=== PATIENT | female | born 1940 | race Caucasian/White ===

== ENCOUNTER 2017-07-29 15:13 | Inpatient (IN) | payer MEDICARE, MEDICAID ==
[2017-07-29] MEDS: morphine 4 MG/ML VIAL IV (22:03)
[2017-07-29] MEDS: ONDANSETRON 4 MG INJ IV (22:04)
[2017-07-29 22:17] LABS: ADD MAN DIFF? NO
[2017-07-29 22:22] LABS: BASOPHIL # 0.1 10^3/ul (0.0-0.1); BASOPHILS % 1.1 % (0.0-2.0); EOSINOPHILS # 0.3 10^3/ul (0.0-0.5); EOSINOPHILS % 2.2 % (0.0-7.0); HEMATOCRIT 31.9 % (37.0-47.0); HEMOGLOBIN 10.8 g/dl (12.0-16.0); MEAN CORPUSCULAR HEMOGLOBIN 28.3 pg (29.0-33.0); MEAN CORPUSCULAR HGB CONC 33.9 g/dl (32.0-37.0); MEAN CORPUSCULAR VOLUME 83.5 fl (82.0-101.0); MEAN PLATELET VOLUME 10.5 fl (7.4-10.4); MONOCYTES % 8.7 % (0.0-11.0); NEUTROPHIL # 8.3 10^3/ul (1.6-7.5); NEUTROPHILS % 70.6 % (39.0-77.0); PLATELET COUNT 290 10^3/UL (140-415); RED BLOOD COUNT 3.82 10^6/ul (4.20-5.40); RED CELL DISTRIBUTION WIDTH 14.6 % (11.5-14.5)
[2017-07-29 22:22] LABS: WHITE BLOOD COUNT 11.7 10^3/ul (4.8-10.8)
[2017-07-29 22:40] LABS: INR 1.44; PROTIME 17.8 Sec (11.9-14.9); PT RATIO 1.4
[2017-07-29 22:41] LABS: ANION GAP 24 (8-16); BLOOD UREA NITROGEN 87 mg/dl (7-20); CALCIUM 8.8 mg/dl (8.4-10.2); CARBON DIOXIDE 18 mmol/L (21-31); CHLORIDE 95 mmol/L (97-110); CREATININE 10.77 mg/dl (0.44-1.00); GLUCOSE 171 mg/dl (70-220); PARTIAL THROMBOPLASTIN TIME 37.4 Sec (25.0-35.0); SODIUM 131 mmol/L (135-144)
[2017-07-29 23:00] LABS: POTASSIUM 6.3 mmol/L (3.5-5.1); TROPONIN-I < 0.012 ng/ml (0.00-0.12)
[2017-07-29] MEDS: NA BICARBONATE 8.4% 50 ML SYG IV (23:15)
[2017-07-29] MEDS: NA POLYST SULFON 15 GM/60 ML BTL PO (23:15)
[2017-07-29] MEDS ORDERED: ACETAMINOPHEN 325 MG TAB PO (23:30)
[2017-07-30] MEDS ORDERED: MAGNESIUM HYDROXIDE 30ML CUP PO
[2017-07-30] MEDS ORDERED: NACL 0.9% 3 ML SYG IV
[2017-07-30] MEDS ORDERED: ONDANSETRON 4 MG INJ IV
[2017-07-30] MEDS ORDERED: DOCUSATE SODIUM 100 MG CAP PO
[2017-07-30] MEDS ORDERED: HYDROCODONE/APAP (5/325) TAB PO
[2017-07-30] MEDS ORDERED: morphine 2 MG INJ IV
[2017-07-30] MEDS ORDERED: ZOLPIDEM 5 MG TAB PO
[2017-07-30] MEDS ORDERED: ACETAMINOPHEN 325 MG TAB PO
[2017-07-30] MEDS ORDERED: GLUCOSE GEL 15 GRAM TUBE PO ×2 (00:30)
[2017-07-30] MEDS ORDERED: GLUCAGON 1 MG INJ IM (00:30)
[2017-07-30] MEDS ORDERED: DEXTROSE 50% 50 ML SYRINGE IV ×2 (00:30)
[2017-07-30] MEDS: ALBUTEROL 0.5% (NEB) 2.5 MG/0.5 ML AMP INH (01:14)
[2017-07-30 04:56] LABS: ADD MAN DIFF? NO
[2017-07-30 05:00] LABS: WHITE BLOOD COUNT 8.5 10^3/ul (4.8-10.8)
[2017-07-30 05:00] LABS: BASOPHIL # 0.1 10^3/ul (0.0-0.1); BASOPHILS % 1.2 % (0.0-2.0); EOSINOPHILS # 0.2 10^3/ul (0.0-0.5); EOSINOPHILS % 2.5 % (0.0-7.0); HEMOGLOBIN 10.2 g/dl (12.0-16.0); LYMPHOCYTES # 1.6 10^3/ul (0.8-2.9); LYMPHOCYTES % 19.2 % (15.0-51.0); MEAN CORPUSCULAR HEMOGLOBIN 28.3 pg (29.0-33.0); MEAN CORPUSCULAR VOLUME 83.1 fl (82.0-101.0); MEAN PLATELET VOLUME 10.4 fl (7.4-10.4); MONOCYTE # 0.8 10^3/ul (0.3-0.9); MONOCYTES % 9.8 % (0.0-11.0); NEUTROPHIL # 5.7 10^3/ul (1.6-7.5); NEUTROPHILS % 66.9 % (39.0-77.0); PLATELET COUNT 231 10^3/UL (140-415); RED BLOOD COUNT 3.61 10^6/ul (4.20-5.40); RED CELL DISTRIBUTION WIDTH 14.4 % (11.5-14.5)
[2017-07-30 05:42] LABS: ALANINE AMINOTRANSFERASE 17 IU/L (13-69); ALBUMIN 3.7 g/dl (3.3-4.9); ALBUMIN/GLOBULIN RATIO 1.12; ALKALINE PHOSPHATASE 52 IU/L (42-121); ANION GAP 26 (8-16); ASPARTATE AMINO TRANSFERASE 18 IU/L (15-46); BLOOD UREA NITROGEN 86 mg/dl (7-20); CALCIUM 8.4 mg/dl (8.4-10.2); CARBON DIOXIDE 20 mmol/L (21-31); CHLORIDE 95 mmol/L (97-110); CREATININE 10.93 mg/dl (0.44-1.00); GLUCOSE 127 mg/dl (70-220); SODIUM 135 mmol/L (135-144)
[2017-07-30] MEDS: PANTOPRAZOLE (EC) 40 MG TAB PO (05:46)
[2017-07-30 06:14] LABS: TROPONIN-I < 0.012 ng/ml (0.00-0.12)
[2017-07-30 06:16] LABS: POTASSIUM 6.2 mmol/L (3.5-5.1)
[2017-07-30] MEDS: ASPIRIN (EC) 81 MG TAB PO (09:22)
[2017-07-30] MEDS: FUROSEMIDE 40 MG TAB PO (09:22)
[2017-07-30] MEDS: AMLODIPINE 5 MG TAB PO (09:23)
[2017-07-30] MEDS: ESCITALOPRAM 10 MG TAB PO (09:23)
[2017-07-30] MEDS: CALCIUM ACETATE 667 MG CAP PO ×3 (09:23→22:03)
[2017-07-30] MEDS: SERTRALINE 50 MG TAB PO (09:23)
[2017-07-30] MEDS: LINAGLIPTIN 5 MG TABLET PO (09:23)
[2017-07-30] MEDS: HEPARIN 5,000 UNIT/0.5 ML VIAL SC ×2 (09:28→22:09)
[2017-07-30 09:51] LABS: HEMOGLOBIN A1C 5.9 % (0-5.9)
[2017-07-30] MEDS: NA POLYST SULFON 15 GM/60 ML BTL PO (13:21)
[2017-07-30] MEDS ORDERED: ALBUMIN HUMAN 25% 50 ML IV (13:30)
[2017-07-30] MEDS ORDERED: SODIUM CHLORIDE 0.9% 1L BAG IV (13:30)
[2017-07-30] MEDS: LOPERAMIDE 2 MG CAP PO (14:48)
[2017-07-30] MEDS: ONDANSETRON 4 MG INJ IV (20:19)
[2017-07-30] MEDS: INSULIN GLARGINE [LANtus] 3 ML PEN SC (22:24)
[2017-07-31] MEDS: PANTOPRAZOLE (EC) 40 MG TAB PO (06:29)
[2017-07-31] MEDS: GLUCOSE GEL 15 GRAM TUBE BUCCAL (08:15)
[2017-07-31] MEDS: DEXTROSE 50% 50 ML SYRINGE IV (08:27)
[2017-07-31] MEDS: AMLODIPINE 5 MG TAB PO (09:13)
[2017-07-31] MEDS: LINAGLIPTIN 5 MG TABLET PO (09:13)
[2017-07-31] MEDS: CALCIUM ACETATE 667 MG CAP PO ×2 (09:13→12:50)
[2017-07-31] MEDS: SERTRALINE 50 MG TAB PO (09:13)
[2017-07-31] MEDS: ASPIRIN (EC) 81 MG TAB PO (09:13)
[2017-07-31] MEDS: FUROSEMIDE 40 MG TAB PO (09:14)
[2017-07-31] MEDS: ESCITALOPRAM 10 MG TAB PO (09:14)
[2017-07-31] MEDS: HEPARIN 5,000 UNIT/0.5 ML VIAL SC (09:14)
[2017-07-31 09:20] LABS: ADD MAN DIFF? NO
[2017-07-31 09:22] LABS: BASOPHIL # 0.1 10^3/ul (0.0-0.1); BASOPHILS % 1.2 % (0.0-2.0); EOSINOPHILS # 0.2 10^3/ul (0.0-0.5); EOSINOPHILS % 2.7 % (0.0-7.0); HEMATOCRIT 33.8 % (37.0-47.0); HEMOGLOBIN 11.4 g/dl (12.0-16.0); LYMPHOCYTES # 1.6 10^3/ul (0.8-2.9); LYMPHOCYTES % 18.8 % (15.0-51.0); MEAN CORPUSCULAR HEMOGLOBIN 28.5 pg (29.0-33.0); MEAN CORPUSCULAR HGB CONC 33.7 g/dl (32.0-37.0); MEAN CORPUSCULAR VOLUME 84.5 fl (82.0-101.0); MEAN PLATELET VOLUME 10.4 fl (7.4-10.4); MONOCYTES % 11.9 % (0.0-11.0); NEUTROPHIL # 5.5 10^3/ul (1.6-7.5); PLATELET COUNT 316 10^3/UL (140-415); RED CELL DISTRIBUTION WIDTH 14.6 % (11.5-14.5)
[2017-07-31 09:22] LABS: WHITE BLOOD COUNT 8.5 10^3/ul (4.8-10.8)
[2017-07-31 09:32] LABS: HEMOGLOBIN A1C 5.9 % (0-5.9)
[2017-07-31 09:46] LABS: MAGNESIUM 2.1 mg/dl (1.7-2.5)
[2017-07-31 09:46] LABS: PHOSPHORUS 5.1 mg/dl (2.5-4.9)
[2017-07-31 09:49] LABS: GLUCOSE 42 mg/dl (70-220)
[2017-07-31 09:51] LABS: ANION GAP 18 (8-16); BLOOD UREA NITROGEN 44 mg/dl (7-20); CALCIUM 8.7 mg/dl (8.4-10.2); CARBON DIOXIDE 30 mmol/L (21-31); CHLORIDE 95 mmol/L (97-110); CREATININE 7.05 mg/dl (0.44-1.00); SODIUM 139 mmol/L (135-144)
[2017-07-31 09:55] LABS: GLUCOSE 45 mg/dl (70-220)
[2017-07-31 10:52] LABS: ANION GAP 18 (8-16); BLOOD UREA NITROGEN 45 mg/dl (7-20); CALCIUM 8.3 mg/dl (8.4-10.2); CARBON DIOXIDE 30 mmol/L (21-31); CHLORIDE 94 mmol/L (97-110); CREATININE 6.87 mg/dl (0.44-1.00); GLUCOSE 141 mg/dl (70-220); POTASSIUM 4.5 mmol/L (3.5-5.1); SODIUM 137 mmol/L (135-144)
[2017-07-31 15:48] LABS: HEPATITIS B SURFACE ANTIGEN NEGATIVE (NEGATIVE)
== END 2017-07-31 20:15 | disposition home or self-care (01) | DRG 683 ==
LOC: MS4 23:21 → E/R 15:13
PROC: 5A1D70Z Performance of Urinary Filtration, Intermittent, Less than 6 Hours Per Day (ICD-10-PCS; principal; 2017-07-30)
DX: N17.9 Acute kidney failure, unspecified (principal); I13.2 Hypertensive heart and chronic kidney disease with heart failure and with stage 5 chronic kidney disease, or end stage renal disease; I42.9 Cardiomyopathy, unspecified; E11.22 Type 2 diabetes mellitus with diabetic chronic kidney disease; N18.6 End stage renal disease; E87.5 Hyperkalemia; I50.9 Heart failure, unspecified; D63.1 Anemia in chronic kidney disease; R00.1 Bradycardia, unspecified; Z91.15 Patient's noncompliance with renal dialysis; Z91.11 Patient's noncompliance with dietary regimen; E78.5 Hyperlipidemia, unspecified; E66.3 Overweight; F32.9 Major depressive disorder, single episode, unspecified; F41.9 Anxiety disorder, unspecified; I25.10 Atherosclerotic heart disease of native coronary artery without angina pectoris; R19.7 Diarrhea, unspecified; Z68.28 Body mass index [BMI] 28.0-28.9, adult; Z99.2 Dependence on renal dialysis; Z95.1 Presence of aortocoronary bypass graft; Z95.810 Presence of automatic (implantable) cardiac defibrillator; Z87.891 Personal history of nicotine dependence; Z79.82 Long term (current) use of aspirin; Z79.4 Long term (current) use of insulin
CPT/HCPCS: 71045; 80048; 80053; 82947; 82962; 83036; 83735; 84100; 84484; 85025; 85610; 85730; 87340; 90935; 93005; 94664; 96372; 96374; 96375; 96376; 99291-25

== ENCOUNTER 2018-08-07 07:53 | Inpatient (IN) | payer MEDICARE, MEDICAID ==
[2018-08-07 08:02] LABS: ADD MAN DIFF? NO
[2018-08-07 08:06] LABS: WHITE BLOOD COUNT 10.5 10^3/ul (4.8-10.8)
[2018-08-07 08:06] LABS: BASOPHIL # 0.1 10^3/ul (0.0-0.1); BASOPHILS % 1.1 % (0.0-2.0); EOSINOPHILS # 0.1 10^3/ul (0.0-0.5); HEMATOCRIT 40.8 % (37.0-47.0); HEMOGLOBIN 13.3 g/dl (12.0-16.0); LYMPHOCYTES # 1.4 10^3/ul (0.8-2.9); LYMPHOCYTES % 13.3 % (15.0-51.0); MEAN CORPUSCULAR HEMOGLOBIN 28.3 pg (29.0-33.0); MEAN CORPUSCULAR HGB CONC 32.6 g/dl (32.0-37.0); MEAN CORPUSCULAR VOLUME 86.8 fl (82.0-101.0); MEAN PLATELET VOLUME 10.5 fl (7.4-10.4); MONOCYTE # 1.1 10^3/ul (0.3-0.9); MONOCYTES % 10.3 % (0.0-11.0); NEUTROPHIL # 7.7 10^3/ul (1.6-7.5); NEUTROPHILS % 73.8 % (39.0-77.0); NUCLEATED RED BLOOD CELLS% 0.2 /100WBC (0.0-0.0); PLATELET COUNT 289 10^3/UL (140-415); RED CELL DISTRIBUTION WIDTH 14.5 % (11.5-14.5)
[2018-08-07] MEDS: NITROGLYCERIN (SL) 0.4 MG TAB SL (08:23)
[2018-08-07] MEDS: ONDANSETRON 4 MG INJ IV (08:23)
[2018-08-07] MEDS: morphine 4 MG/ML VIAL IV (08:23)
[2018-08-07 08:24] LABS: ANION GAP 26 (5-13); BLOOD UREA NITROGEN 86 mg/dl (7-20); CALCIUM 7.9 mg/dl (8.4-10.2); CARBON DIOXIDE 13 mmol/L (21-31); CHLORIDE 96 mmol/L (97-110); CREATININE 13.32 mg/dl (0.44-1.00); GLUCOSE 98 mg/dl (70-220); SODIUM 135 mmol/L (135-144)
[2018-08-07] MEDS: NITROGLYCERIN 2% 1 GM OINT PKT TD (08:24)
[2018-08-07 08:35] LABS: TROPONIN-I 0.058 ng/ml (0.000-0.120)
[2018-08-07 08:39] LABS: POTASSIUM 8.3 mmol/L (3.5-5.1)
[2018-08-07] MEDS: ALBUTEROL 0.5% (NEB) 2.5 MG/0.5 ML AMP INH (09:07)
[2018-08-07] MEDS: DEXTROSE 50% 50 ML SYRINGE IV ×2 (09:09→09:53)
[2018-08-07] MEDS: CA CHLORIDE 10% 10 ML SYRINGE IV (09:10)
[2018-08-07] MEDS: NA BICARBONATE 8.4% 50 ML SYG IV (09:10)
[2018-08-07] MEDS: SODIUM POLYSTYRENE 15 GM KIT (POWDER + SORBITOL) PO ×3 (09:11→23:35)
[2018-08-07] MEDS: NA POLYST SULFON 15 GM/60 ML BTL PO (09:11)
[2018-08-07] MEDS: INSULIN REGULAR, HUMAN 100 UNIT/1 ML 3ML VIAL IVP (09:11)
[2018-08-07] MEDS ORDERED: ACETAMINOPHEN 325 MG TAB PO (09:30)
[2018-08-07] MEDS ORDERED: ONDANSETRON 4 MG INJ IV ×2 (09:30→13:00)
[2018-08-07] MEDS: DIPHENHYDRAMINE 50 MG INJ IV ×2 (09:47→15:20)
[2018-08-07] MEDS ORDERED: SOD CHLORIDE 0.9% 1,000 ML IV (10:30)
[2018-08-07] MEDS ORDERED: NACL 0.9% 3 ML SYG IV (13:00)
[2018-08-07] MEDS ORDERED: LORAZEPAM 0.5 MG TAB PO (13:00)
[2018-08-07] MEDS ORDERED: ZOLPIDEM 5 MG TAB PO (13:00)
[2018-08-07] MEDS ORDERED: morphine 2 MG INJ IV (13:30)
[2018-08-07] MEDS ORDERED: GLUCAGON 1 MG INJ IM (13:30)
[2018-08-07] MEDS ORDERED: GLUCOSE GEL 15 GRAM TUBE BUCCAL (13:30)
[2018-08-07] MEDS ORDERED: DEXTROSE 50% 50 ML SYRINGE IV ×2 (13:30)
[2018-08-07] MEDS ORDERED: GLUCOSE GEL 15 GRAM TUBE PO ×2 (13:30)
[2018-08-07] MEDS ORDERED: ESCITALOPRAM 10 MG TAB PO (14:00)
[2018-08-07] MEDS ORDERED: HEPARIN 5,000 UNIT/1 ML VIAL SC (14:00)
[2018-08-07] MEDS ORDERED: LINAGLIPTIN 5 MG TABLET PO (14:00)
[2018-08-07] MEDS ORDERED: morphine (ER) 15 MG TAB PO (14:00)
[2018-08-07] MEDS ORDERED: CALCIUM ACETATE 667 MG CAP PO (14:00)
[2018-08-07] MEDS ORDERED: ASPIRIN (EC) 81 MG TAB PO (14:00)
[2018-08-07] MEDS ORDERED: PANTOPRAZOLE (EC) 40 MG TAB PO (14:00)
[2018-08-07] MEDS ORDERED: SERTRALINE 50 MG TAB PO (14:00)
[2018-08-07] MEDS ORDERED: AMLODIPINE 5 MG TAB PO (14:00)
[2018-08-07 15:08] LABS: CREATINE KINASE 460 IU/L (23-200)
[2018-08-07 15:18] LABS: CK-MB 9.34 ng/ml (0.0-2.4); TROPONIN-I 0.061 ng/ml (0.000-0.120)
[2018-08-07 15:49] LABS: ALPHA FETOPROTEIN 1.45 IU/L (0.00-7.21)
[2018-08-07 16:32] LABS: HEPATITIS B SURFACE ANTIGEN NEGATIVE (NEGATIVE)
[2018-08-07] MEDS: PANTOPRAZOLE (EC) 40 MG TAB PO (17:22)
[2018-08-07] MEDS: CALCIUM ACETATE 667 MG CAP PO (17:22)
[2018-08-07] MEDS: LINAGLIPTIN 5 MG TABLET PO (17:23)
[2018-08-07] MEDS: ESCITALOPRAM 10 MG TAB PO (17:23)
[2018-08-07] MEDS: SERTRALINE 50 MG TAB PO (17:23)
[2018-08-07] MEDS: AMLODIPINE 5 MG TAB PO (17:33)
[2018-08-07] MEDS: HEPARIN 5,000 UNIT/1 ML VIAL SC (17:34)
[2018-08-07] MEDS: morphine (ER) 15 MG TAB PO (17:36)
[2018-08-07] MEDS: INSULIN ASPART [NOVOLOG] 3 ML PEN SC ×2 (17:39→21:00)
[2018-08-07 19:56] LABS: CREATINE KINASE 371 IU/L (23-200)
[2018-08-07 20:09] LABS: POTASSIUM 7.2 mmol/L (3.5-5.1)
[2018-08-07 20:13] LABS: CK-MB 7.36 ng/ml (0.0-2.4); TROPONIN-I 0.083 ng/ml (0.000-0.120)
[2018-08-07 20:43] LABS: OCCULT BLOOD STOOL NEGATIVE (NEGATIVE)
[2018-08-08] MEDS: SODIUM POLYSTYRENE 15 GM KIT (POWDER + SORBITOL) PO (01:00)
[2018-08-08] MEDS: ACCU-CHEK XX (02:00)
[2018-08-08] MEDS: DIPHENHYDRAMINE 50 MG INJ IV (02:28)
[2018-08-08] MEDS: PANTOPRAZOLE (EC) 40 MG TAB PO (06:14)
[2018-08-08] MEDS ORDERED: NALOXONE (0.4 MG/ML) INJ (07:00)
[2018-08-08] MEDS: INSULIN ASPART [NOVOLOG] 3 ML PEN SC ×4 (07:58→21:00)
[2018-08-08] MEDS: CALCIUM ACETATE 667 MG CAP PO ×3 (08:37→17:26)
[2018-08-08] MEDS: ESCITALOPRAM 10 MG TAB PO (08:38)
[2018-08-08] MEDS: morphine (ER) 15 MG TAB PO (08:39)
[2018-08-08] MEDS: LINAGLIPTIN 5 MG TABLET PO (08:39)
[2018-08-08] MEDS: AMLODIPINE 5 MG TAB PO (08:39)
[2018-08-08] MEDS: SERTRALINE 50 MG TAB PO (08:39)
[2018-08-08] MEDS: HEPARIN 5,000 UNIT/1 ML VIAL SC ×2 (08:44→22:41)
[2018-08-08 08:48] LABS: ADD MAN DIFF? NO
[2018-08-08 08:54] LABS: WHITE BLOOD COUNT 9.5 10^3/ul (4.8-10.8)
[2018-08-08 08:54] LABS: BASOPHIL # 0.1 10^3/ul (0.0-0.1); BASOPHILS % 0.6 % (0.0-2.0); EOSINOPHILS # 0.1 10^3/ul (0.0-0.5); EOSINOPHILS % 1.1 % (0.0-7.0); HEMATOCRIT 38.3 % (37.0-47.0); HEMOGLOBIN 12.3 g/dl (12.0-16.0); LYMPHOCYTES # 0.9 10^3/ul (0.8-2.9); LYMPHOCYTES % 9.3 % (15.0-51.0); MEAN CORPUSCULAR HGB CONC 32.1 g/dl (32.0-37.0); MEAN CORPUSCULAR VOLUME 87.2 fl (82.0-101.0); MEAN PLATELET VOLUME 9.9 fl (7.4-10.4); MONOCYTE # 1.1 10^3/ul (0.3-0.9); NEUTROPHIL # 7.3 10^3/ul (1.6-7.5); NEUTROPHILS % 76.6 % (39.0-77.0); NUCLEATED RED BLOOD CELLS% 0.4 /100WBC (0.0-0.0); PLATELET COUNT 239 10^3/UL (140-415); RED BLOOD COUNT 4.39 10^6/ul (4.20-5.40); RED CELL DISTRIBUTION WIDTH 14.6 % (11.5-14.5)
[2018-08-08 09:19] LABS: PHOSPHORUS 4.8 mg/dl (2.5-4.9)
[2018-08-08 09:20] LABS: AMMONIA 11 umol/l (9-30)
[2018-08-08 09:20] LABS: ALANINE AMINOTRANSFERASE 17 IU/L (13-69); ALBUMIN 3.7 g/dl (3.3-4.9); ALBUMIN/GLOBULIN RATIO 1.02; ALKALINE PHOSPHATASE 67 IU/L (42-121); ANION GAP 12 (5-13); ASPARTATE AMINO TRANSFERASE 40 IU/L (15-46); BLOOD UREA NITROGEN 15 mg/dl (7-20); CALCIUM 9.1 mg/dl (8.4-10.2); CARBON DIOXIDE 30 mmol/L (21-31); CHLORIDE 97 mmol/L (97-110); CHOL/HDL RATIO 4.5 RATIO; CHOLESTEROL 142 mg/dl (100-200); CREATININE 4.37 mg/dl (0.44-1.00); GLUCOSE 108 mg/dl (70-220); HDL CHOLESTEROL 31 mg/dl (33-92); LDL CHOLESTEROL,CALCULATED 75 mg/dl; POTASSIUM 3.5 mmol/L (3.5-5.1); SODIUM 139 mmol/L (135-144); TOTAL PROTEIN 7.3 g/dl (6.1-8.1); TRIGLYCERIDES 178 mg/dl (0-149)
[2018-08-08 09:21] LABS: HEMOGLOBIN A1C 7.4 % (0-5.9)
[2018-08-08 09:28] LABS: INR 1.38; PROTIME 17.1 Sec (11.9-14.9); PT RATIO 1.3
[2018-08-08] MEDS: OXYCODONE/ACETAMINOPHEN (5/325) TAB PO (15:34)
[2018-08-08] MEDS: ASPIRIN (EC) 81 MG TAB PO (17:26)
[2018-08-08] MEDS: NALOXONE (0.4 MG/ML) INJ IV ×3 (21:05→21:38)
[2018-08-08 22:07] LABS: ADD MAN DIFF? NO
[2018-08-08 22:08] LABS: BASOPHIL # 0.1 10^3/ul (0.0-0.1); BASOPHILS % 0.6 % (0.0-2.0); EOSINOPHILS # 0.2 10^3/ul (0.0-0.5); EOSINOPHILS % 1.5 % (0.0-7.0); HEMATOCRIT 39.5 % (37.0-47.0); HEMOGLOBIN 12.5 g/dl (12.0-16.0); LYMPHOCYTES # 1.3 10^3/ul (0.8-2.9); LYMPHOCYTES % 11.5 % (15.0-51.0); MEAN CORPUSCULAR HEMOGLOBIN 28.3 pg (29.0-33.0); MEAN CORPUSCULAR HGB CONC 31.6 g/dl (32.0-37.0); MEAN CORPUSCULAR VOLUME 89.4 fl (82.0-101.0); MEAN PLATELET VOLUME 10.1 fl (7.4-10.4); MONOCYTE # 1.2 10^3/ul (0.3-0.9); NEUTROPHIL # 8.2 10^3/ul (1.6-7.5); NEUTROPHILS % 74.9 % (39.0-77.0); NUCLEATED RED BLOOD CELLS% 0.3 /100WBC (0.0-0.0); PLATELET COUNT 218 10^3/UL (140-415); RED BLOOD COUNT 4.42 10^6/ul (4.20-5.40); RED CELL DISTRIBUTION WIDTH 14.9 % (11.5-14.5)
[2018-08-08 22:27] LABS: ANION GAP 13 (5-13); BLOOD UREA NITROGEN 19 mg/dl (7-20); CALCIUM 8.8 mg/dl (8.4-10.2); CARBON DIOXIDE 29 mmol/L (21-31); CHLORIDE 96 mmol/L (97-110); CREATININE 5.68 mg/dl (0.44-1.00); GLUCOSE 145 mg/dl (70-220); POTASSIUM 3.7 mmol/L (3.5-5.1); SODIUM 138 mmol/L (135-144)
[2018-08-08 23:06] LABS: MODE NASAL CANNULA; MetHgb Venous 0.2 %; Sample Type Blood venous; Site VENOUS LINE; Venous COHb 0.6 %; Venous Fraction OxyHgb 96.8 %; Venous Oxygen Sat 97.6 mmHG (55.0-75.0); Venous Total Hemglobin 13.4 g/dl
[2018-08-09] MEDS: ACCU-CHEK XX (02:00)
[2018-08-09] MEDS: PANTOPRAZOLE (EC) 40 MG TAB PO (05:39)
[2018-08-09 05:54] LABS: ADD MAN DIFF? NO
[2018-08-09 06:04] LABS: WHITE BLOOD COUNT 9.1 10^3/ul (4.8-10.8)
[2018-08-09 06:04] LABS: BASOPHIL # 0.1 10^3/ul (0.0-0.1); BASOPHILS % 0.5 % (0.0-2.0); EOSINOPHILS % 0.2 % (0.0-7.0); HEMATOCRIT 38.6 % (37.0-47.0); HEMOGLOBIN 12.1 g/dl (12.0-16.0); LYMPHOCYTES # 1.4 10^3/ul (0.8-2.9); LYMPHOCYTES % 15.1 % (15.0-51.0); MEAN CORPUSCULAR HEMOGLOBIN 28.2 pg (29.0-33.0); MEAN CORPUSCULAR HGB CONC 31.3 g/dl (32.0-37.0); MEAN PLATELET VOLUME 10.1 fl (7.4-10.4); MONOCYTE # 0.9 10^3/ul (0.3-0.9); MONOCYTES % 9.5 % (0.0-11.0); NEUTROPHIL # 6.8 10^3/ul (1.6-7.5); NEUTROPHILS % 74.3 % (39.0-77.0); NUCLEATED RED BLOOD CELLS% 0.2 /100WBC (0.0-0.0); PLATELET COUNT 207 10^3/UL (140-415); RED BLOOD COUNT 4.29 10^6/ul (4.20-5.40); RED CELL DISTRIBUTION WIDTH 14.8 % (11.5-14.5)
[2018-08-09 06:32] LABS: ANION GAP 18 (5-13); BLOOD UREA NITROGEN 23 mg/dl (7-20); CALCIUM 8.7 mg/dl (8.4-10.2); CARBON DIOXIDE 27 mmol/L (21-31); CHLORIDE 98 mmol/L (97-110); CREATININE 6.23 mg/dl (0.44-1.00); GLUCOSE 136 mg/dl (70-220); POTASSIUM 3.9 mmol/L (3.5-5.1); SODIUM 143 mmol/L (135-144)
[2018-08-09 06:57] LABS: PHOSPHORUS 7.4 mg/dl (2.5-4.9)
[2018-08-09] MEDS: ASPIRIN (EC) 81 MG TAB PO (08:35)
[2018-08-09] MEDS: LINAGLIPTIN 5 MG TABLET PO (08:35)
[2018-08-09] MEDS: SERTRALINE 50 MG TAB PO (08:35)
[2018-08-09] MEDS: CALCIUM ACETATE 667 MG CAP PO ×3 (08:35→17:30)
[2018-08-09] MEDS: ESCITALOPRAM 10 MG TAB PO (08:35)
[2018-08-09] MEDS: AMLODIPINE 5 MG TAB PO (08:36)
[2018-08-09] MEDS: HEPARIN 5,000 UNIT/1 ML VIAL SC ×2 (08:45→21:30)
[2018-08-09] MEDS: INSULIN ASPART [NOVOLOG] 3 ML PEN SC ×4 (08:45→20:44)
[2018-08-09] MEDS ORDERED: ALBUMIN HUMAN 25% 100 ML IV (10:00)
[2018-08-09] MEDS: PIPER-TAZO 2.25 GM (PMX) 50 ML IVPB (14:57)
[2018-08-10] MEDS: PIPER-TAZO 2.25 GM (PMX) 50 ML IVPB ×3 (00:03→23:10)
[2018-08-10] MEDS: ACCU-CHEK XX (02:00)
[2018-08-10] MEDS: PANTOPRAZOLE (EC) 40 MG TAB PO (05:32)
[2018-08-10 06:07] LABS: ADD MAN DIFF? NO
[2018-08-10 06:15] LABS: WHITE BLOOD COUNT 7.9 10^3/ul (4.8-10.8)
[2018-08-10 06:15] LABS: BASOPHIL # 0.1 10^3/ul (0.0-0.1); BASOPHILS % 0.6 % (0.0-2.0); EOSINOPHILS # 0.3 10^3/ul (0.0-0.5); HEMATOCRIT 38.7 % (37.0-47.0); HEMOGLOBIN 12.2 g/dl (12.0-16.0); LYMPHOCYTES # 1.5 10^3/ul (0.8-2.9); LYMPHOCYTES % 18.4 % (15.0-51.0); MEAN CORPUSCULAR HEMOGLOBIN 28.6 pg (29.0-33.0); MEAN CORPUSCULAR HGB CONC 31.5 g/dl (32.0-37.0); MEAN CORPUSCULAR VOLUME 90.6 fl (82.0-101.0); MEAN PLATELET VOLUME 10.2 fl (7.4-10.4); MONOCYTE # 1.2 10^3/ul (0.3-0.9); MONOCYTES % 14.6 % (0.0-11.0); NEUTROPHIL # 4.9 10^3/ul (1.6-7.5); NEUTROPHILS % 61.8 % (39.0-77.0); NUCLEATED RED BLOOD CELLS% 0.3 /100WBC (0.0-0.0); PLATELET COUNT 202 10^3/UL (140-415); RED BLOOD COUNT 4.27 10^6/ul (4.20-5.40); RED CELL DISTRIBUTION WIDTH 14.9 % (11.5-14.5)
[2018-08-10 06:46] LABS: ANION GAP 14 (5-13); BLOOD UREA NITROGEN 15 mg/dl (7-20); CALCIUM 8.7 mg/dl (8.4-10.2); CARBON DIOXIDE 30 mmol/L (21-31); CHLORIDE 96 mmol/L (97-110); GLUCOSE 104 mg/dl (70-220); POTASSIUM 3.8 mmol/L (3.5-5.1); SODIUM 140 mmol/L (135-144)
[2018-08-10 06:53] LABS: MAGNESIUM 1.9 mg/dl (1.7-2.5)
[2018-08-10 06:53] LABS: PHOSPHORUS 4.2 mg/dl (2.5-4.9)
[2018-08-10] MEDS: INSULIN ASPART [NOVOLOG] 3 ML PEN SC ×4 (07:53→23:06)
[2018-08-10] MEDS: CALCIUM ACETATE 667 MG CAP PO ×3 (08:22→17:06)
[2018-08-10] MEDS: ESCITALOPRAM 10 MG TAB PO (08:22)
[2018-08-10] MEDS: LINAGLIPTIN 5 MG TABLET PO (08:22)
[2018-08-10] MEDS: ASPIRIN (EC) 81 MG TAB PO (08:22)
[2018-08-10] MEDS: AMLODIPINE 5 MG TAB PO (08:22)
[2018-08-10] MEDS: SERTRALINE 50 MG TAB PO (08:22)
[2018-08-10] MEDS: HEPARIN 5,000 UNIT/1 ML VIAL SC ×2 (08:31→23:26)
[2018-08-10] MEDS: ACETAMINOPHEN 325 MG TAB PO (19:23)
[2018-08-11] MEDS: ACCU-CHEK XX (02:00)
[2018-08-11 05:42] LABS: ADD MAN DIFF? NO
[2018-08-11 05:47] LABS: BASOPHIL # 0.1 10^3/ul (0.0-0.1); EOSINOPHILS # 0.4 10^3/ul (0.0-0.5); EOSINOPHILS % 4.9 % (0.0-7.0); HEMATOCRIT 37.6 % (37.0-47.0); HEMOGLOBIN 11.9 g/dl (12.0-16.0); LYMPHOCYTES # 1.6 10^3/ul (0.8-2.9); LYMPHOCYTES % 20.2 % (15.0-51.0); MEAN CORPUSCULAR HEMOGLOBIN 28.3 pg (29.0-33.0); MEAN CORPUSCULAR HGB CONC 31.6 g/dl (32.0-37.0); MEAN CORPUSCULAR VOLUME 89.3 fl (82.0-101.0); MEAN PLATELET VOLUME 10.3 fl (7.4-10.4); MONOCYTE # 1.1 10^3/ul (0.3-0.9); MONOCYTES % 14.8 % (0.0-11.0); NEUTROPHIL # 4.5 10^3/ul (1.6-7.5); NEUTROPHILS % 58.7 % (39.0-77.0); NUCLEATED RED BLOOD CELLS% 0.3 /100WBC (0.0-0.0); PLATELET COUNT 161 10^3/UL (140-415); RED BLOOD COUNT 4.21 10^6/ul (4.20-5.40); RED CELL DISTRIBUTION WIDTH 15.1 % (11.5-14.5)
[2018-08-11 05:47] LABS: WHITE BLOOD COUNT 7.7 10^3/ul (4.8-10.8)
[2018-08-11 06:15] LABS: MAGNESIUM 1.8 mg/dl (1.7-2.5)
[2018-08-11 06:15] LABS: PHOSPHORUS 4.1 mg/dl (2.5-4.9)
[2018-08-11 06:21] LABS: AMMONIA < 9 umol/l (9-30)
[2018-08-11 06:29] LABS: ANION GAP 14 (5-13); BLOOD UREA NITROGEN 24 mg/dl (7-20); CALCIUM 8.2 mg/dl (8.4-10.2); CARBON DIOXIDE 29 mmol/L (21-31); CHLORIDE 94 mmol/L (97-110); CREATININE 6.01 mg/dl (0.44-1.00); GLUCOSE 107 mg/dl (70-220); POTASSIUM 3.9 mmol/L (3.5-5.1); SODIUM 137 mmol/L (135-144)
[2018-08-11] MEDS: PANTOPRAZOLE (EC) 40 MG TAB PO (06:38)
[2018-08-11 06:53] LABS: CHOLESTEROL 121 mg/dl (100-200)
[2018-08-11 06:53] LABS: CHOL/HDL RATIO 3.1 RATIO; HDL CHOLESTEROL 39 mg/dl (33-92); LDL CHOLESTEROL,CALCULATED 56 mg/dl; TRIGLYCERIDES 130 mg/dl (0-149)
[2018-08-11] MEDS: INSULIN ASPART [NOVOLOG] 3 ML PEN SC ×4 (07:39→21:11)
[2018-08-11] MEDS: PIPER-TAZO 2.25 GM (PMX) 50 ML IVPB ×2 (08:31→21:32)
[2018-08-11] MEDS: AMLODIPINE 5 MG TAB PO (08:32)
[2018-08-11] MEDS: CALCIUM ACETATE 667 MG CAP PO ×3 (08:32→17:20)
[2018-08-11] MEDS: ASPIRIN (EC) 81 MG TAB PO (08:32)
[2018-08-11] MEDS: LINAGLIPTIN 5 MG TABLET PO (08:33)
[2018-08-11] MEDS: HEPARIN 5,000 UNIT/1 ML VIAL SC ×2 (08:59→21:37)
[2018-08-11] MEDS: SERTRALINE 50 MG TAB PO (09:00)
[2018-08-11] MEDS: ESCITALOPRAM 10 MG TAB PO (09:00)
[2018-08-11] MEDS ORDERED: VANCOMYCIN IV PER PHARMACY XX (13:00)
[2018-08-11] MEDS: VANCOMYCIN HCL 1.5 GM in SOD CHLORIDE 0.9% 250 ML IVPB (14:28)
[2018-08-11] MEDS: ATORVASTATIN 10 MG TAB PO (21:32)
[2018-08-12] MEDS: ACCU-CHEK XX (02:42)
[2018-08-12] MEDS: ACETAMINOPHEN 325 MG TAB PO (03:00)
[2018-08-12] MEDS: PANTOPRAZOLE (EC) 40 MG TAB PO (05:10)
[2018-08-12 05:59] LABS: ADD MAN DIFF? NO
[2018-08-12 06:12] LABS: WHITE BLOOD COUNT 8.1 10^3/ul (4.8-10.8)
[2018-08-12 06:12] LABS: BASOPHIL # 0.1 10^3/ul (0.0-0.1); BASOPHILS % 0.9 % (0.0-2.0); EOSINOPHILS # 0.5 10^3/ul (0.0-0.5); EOSINOPHILS % 5.8 % (0.0-7.0); HEMATOCRIT 37.2 % (37.0-47.0); HEMOGLOBIN 11.8 g/dl (12.0-16.0); LYMPHOCYTES # 1.4 10^3/ul (0.8-2.9); LYMPHOCYTES % 17.7 % (15.0-51.0); MEAN CORPUSCULAR HEMOGLOBIN 27.8 pg (29.0-33.0); MEAN CORPUSCULAR HGB CONC 31.7 g/dl (32.0-37.0); MEAN CORPUSCULAR VOLUME 87.7 fl (82.0-101.0); MEAN PLATELET VOLUME 10.5 fl (7.4-10.4); MONOCYTE # 1.1 10^3/ul (0.3-0.9); NEUTROPHILS % 60.7 % (39.0-77.0); PLATELET COUNT 154 10^3/UL (140-415); RED BLOOD COUNT 4.24 10^6/ul (4.20-5.40); RED CELL DISTRIBUTION WIDTH 14.9 % (11.5-14.5)
[2018-08-12 06:37] LABS: MAGNESIUM 1.8 mg/dl (1.7-2.5)
[2018-08-12] MEDS: INSULIN ASPART [NOVOLOG] 3 ML PEN SC ×4 (07:45→22:05)
[2018-08-12] MEDS: CALCIUM ACETATE 667 MG CAP PO ×3 (07:45→17:34)
[2018-08-12 09:01] LABS: ANION GAP 15 (5-13); BLOOD UREA NITROGEN 33 mg/dl (7-20); CALCIUM 8.2 mg/dl (8.4-10.2); CALCIUM 8.5 mg/dl (8.4-10.2); CARBON DIOXIDE 24 mmol/L (21-31); CARBON DIOXIDE 25 mmol/L (21-31); CHLORIDE 94 mmol/L (97-110); CHLORIDE 95 mmol/L (97-110); CREATININE 7.26 mg/dl (0.44-1.00); CREATININE 7.33 mg/dl (0.44-1.00); GLUCOSE 109 mg/dl (70-220); GLUCOSE 118 mg/dl (70-220); POTASSIUM 4.2 mmol/L (3.5-5.1); POTASSIUM 4.7 mmol/L (3.5-5.1); SODIUM 134 mmol/L (135-144)
[2018-08-12] MEDS: SERTRALINE 50 MG TAB PO (09:29)
[2018-08-12] MEDS: ESCITALOPRAM 10 MG TAB PO (09:29)
[2018-08-12] MEDS: ASPIRIN (EC) 81 MG TAB PO (09:29)
[2018-08-12] MEDS: LINAGLIPTIN 5 MG TABLET PO (09:30)
[2018-08-12] MEDS: AMLODIPINE 5 MG TAB PO (09:30)
[2018-08-12] MEDS: HEPARIN 5,000 UNIT/1 ML VIAL SC ×2 (09:40→22:16)
[2018-08-12] MEDS: PIPER-TAZO 2.25 GM (PMX) 50 ML IVPB ×2 (10:32→22:03)
[2018-08-12] MEDS: ATORVASTATIN 10 MG TAB PO (22:03)
[2018-08-13] MEDS: ACCU-CHEK XX (02:00)
[2018-08-13] MEDS: PANTOPRAZOLE (EC) 40 MG TAB PO (05:37)
[2018-08-13 05:40] LABS: VANCOMYCIN,RANDOM 18.1 ug/ml
[2018-08-13] MEDS: INSULIN ASPART [NOVOLOG] 3 ML PEN SC ×3 (07:27→17:31)
[2018-08-13] MEDS: CALCIUM ACETATE 667 MG CAP PO ×3 (07:47→17:31)
[2018-08-13] MEDS: ESCITALOPRAM 10 MG TAB PO (08:21)
[2018-08-13] MEDS: LINAGLIPTIN 5 MG TABLET PO (08:21)
[2018-08-13] MEDS: ASPIRIN (EC) 81 MG TAB PO (08:21)
[2018-08-13] MEDS: AMLODIPINE 5 MG TAB PO (08:21)
[2018-08-13] MEDS: SERTRALINE 50 MG TAB PO (08:21)
[2018-08-13] MEDS: PIPER-TAZO 2.25 GM (PMX) 50 ML IVPB (08:26)
[2018-08-13] MEDS: HEPARIN 5,000 UNIT/1 ML VIAL SC (08:33)
[2018-08-13] MEDS: VANCOMYCIN 1 GM 250 ML IVPB (14:24)
== END 2018-08-13 17:15 | disposition home or self-care (01) | DRG 640 ==
LOC: E/R 07:53 → 6WM 09:12
PROC: 5A1D70Z Performance of Urinary Filtration, Intermittent, Less than 6 Hours Per Day (ICD-10-PCS; principal; 2018-08-07)
DX: E87.5 Hyperkalemia (principal); N18.6 End stage renal disease; I50.33 Acute on chronic diastolic (congestive) heart failure; J18.9 Pneumonia, unspecified organism; J96.00 Acute respiratory failure, unspecified whether with hypoxia or hypercapnia; R18.8 Other ascites; J81.1 Chronic pulmonary edema; I13.2 Hypertensive heart and chronic kidney disease with heart failure and with stage 5 chronic kidney disease, or end stage renal disease; I42.9 Cardiomyopathy, unspecified; E11.22 Type 2 diabetes mellitus with diabetic chronic kidney disease; Z99.2 Dependence on renal dialysis; Z91.15 Patient's noncompliance with renal dialysis; E87.2 Acidosis; E83.51 Hypocalcemia; R00.1 Bradycardia, unspecified; Z68.29 Body mass index [BMI] 29.0-29.9, adult; Z95.1 Presence of aortocoronary bypass graft; Z87.81 Personal history of (healed) traumatic fracture; Z95.810 Presence of automatic (implantable) cardiac defibrillator; Z87.891 Personal history of nicotine dependence; F41.8 Other specified anxiety disorders; R19.7 Diarrhea, unspecified; I25.10 Atherosclerotic heart disease of native coronary artery without angina pectoris; E66.3 Overweight; R53.83 Other fatigue; T40.2X5A Adverse effect of other opioids, initial encounter; Y92.239 Unspecified place in hospital as the place of occurrence of the external cause; I49.9 Cardiac arrhythmia, unspecified; B96.1 Klebsiella pneumoniae [K. pneumoniae] as the cause of diseases classified elsewhere; A49.01 Methicillin susceptible Staphylococcus aureus infection, unspecified site
CPT/HCPCS: 36415; 71045; 74176; 76705; 80048; 80053; 80061; 80202; 82105; 82140; 82270; 82550; 82553; 82803; 82962; 83036; 83735; 84100; 84132; 84443; 84484; 85025; 85610; 87045; 87070; 87075; 87081; 87340; 90935; 93005; 93306; 93931; 94664; 96374; 96375; 97116; 97162; 97530; 99291-25

== ENCOUNTER 2018-12-11 16:50 | Emergency (ER) | payer MEDICARE, MEDICAID ==
[2018-12-11] MEDS: IBUPROFEN 200 MG TAB PO (17:38)
[2018-12-11] MEDS: traMADol 50 MG TAB PO (17:38)
== END 2018-12-11 20:29 | disposition home or self-care (01) ==
LOC: FTE 16:50
DX: S52.614A Nondisplaced fracture of right ulna styloid process, initial encounter for closed fracture (principal); N18.9 Chronic kidney disease, unspecified; E11.22 Type 2 diabetes mellitus with diabetic chronic kidney disease; I13.0 Hypertensive heart and chronic kidney disease with heart failure and stage 1 through stage 4 chronic kidney disease, or unspecified chronic kidney disease; I50.9 Heart failure, unspecified; W18.39XA Other fall on same level, initial encounter; Y92.9 Unspecified place or not applicable; Z95.1 Presence of aortocoronary bypass graft; Z79.82 Long term (current) use of aspirin
CPT/HCPCS: 29125; 72220; 73110-RT; 93005; 99284-25

== ENCOUNTER 2019-01-17 08:53 | Inpatient (IN) | payer MEDICARE, MEDICAID ==
[2019-01-17 10:08] LABS: ADD MAN DIFF? NO
[2019-01-17 10:10] LABS: BASOPHIL # 0.1 10^3/ul (0.0-0.1); BASOPHILS % 0.9 % (0.0-2.0); EOSINOPHILS # 0.3 10^3/ul (0.0-0.5); HEMATOCRIT 35.6 % (37.0-47.0); HEMOGLOBIN 11.9 g/dl (12.0-16.0); LYMPHOCYTES # 1.1 10^3/ul (0.8-2.9); LYMPHOCYTES % 10.8 % (15.0-51.0); MEAN CORPUSCULAR HEMOGLOBIN 26.9 pg (29.0-33.0); MEAN CORPUSCULAR HGB CONC 33.4 g/dl (32.0-37.0); MEAN CORPUSCULAR VOLUME 80.5 fl (82.0-101.0); MEAN PLATELET VOLUME 11.2 fl (7.4-10.4); MONOCYTE # 0.8 10^3/ul (0.3-0.9); MONOCYTES % 7.9 % (0.0-11.0); NEUTROPHILS % 76.5 % (39.0-77.0); NUCLEATED RED BLOOD CELLS% 0.2 /100WBC (0.0-0.0); PLATELET COUNT 226 10^3/UL (140-415); RED BLOOD COUNT 4.42 10^6/ul (4.20-5.40); RED CELL DISTRIBUTION WIDTH 15.5 % (11.5-14.5)
[2019-01-17 10:10] LABS: WHITE BLOOD COUNT 10.4 10^3/ul (4.8-10.8)
[2019-01-17 10:30] LABS: ALBUMIN/GLOBULIN RATIO 0.94; ANION GAP 24 (5-13)
[2019-01-17 10:38] LABS: AMMONIA < 9 umol/l (9-30)
[2019-01-17 10:41] LABS: SODIUM 134 mmol/L (135-144)
[2019-01-17 10:42] LABS: ALANINE AMINOTRANSFERASE 16 IU/L (13-69); ALBUMIN 3.6 g/dl (3.3-4.9); ALKALINE PHOSPHATASE 71 IU/L (42-121); ASPARTATE AMINO TRANSFERASE 27 IU/L (15-46); BILIRUBIN,INDIRECT 0.1 mg/dl (0-1.1); BILIRUBIN,TOTAL 0.1 mg/dl (0.2-1.3); BLOOD UREA NITROGEN 90 mg/dl (7-20); CALCIUM 8.3 mg/dl (8.4-10.2); CARBON DIOXIDE 19 mmol/L (21-31); CHLORIDE 91 mmol/L (97-110); CREATININE 10.87 mg/dl (0.44-1.00); GLUCOSE 157 mg/dl (70-220); LIPASE 68 U/L (23-300); POTASSIUM 7.1 mmol/L (3.5-5.1); TOTAL PROTEIN 7.4 g/dl (6.1-8.1)
[2019-01-17] MEDS: CA CHLORIDE 10% 10 ML SYRINGE IV ×2 (10:45→11:15)
[2019-01-17] MEDS ORDERED: DEXTROSE 50% 50 ML SYRINGE IV ×3 (11:00→15:30)
[2019-01-17] MEDS: ALBUTEROL 0.5% (NEB) 2.5 MG/0.5 ML AMP INH (11:00)
[2019-01-17] MEDS: DEXTROSE 50% 50 ML SYRINGE IV (11:08)
[2019-01-17] MEDS: INSULIN REGULAR, HUMAN 100 UNIT/1 ML 3ML VIAL IVP (11:14)
[2019-01-17] MEDS: FUROSEMIDE 20 MG INJ IV (11:15)
[2019-01-17] MEDS: ASPIRIN 81 MG TAB PO (11:18)
[2019-01-17] MEDS: CEFTRIAXONE 1 GM/50 ML (PMX) 50 ML IVPB (12:00)
[2019-01-17] MEDS: DIPHENHYDRAMINE 50 MG INJ IV (15:21)
[2019-01-17] MEDS ORDERED: NACL 0.9% 3 ML SYG IV (15:30)
[2019-01-17] MEDS ORDERED: HYDROCODONE/APAP (5/325) TAB PO (15:30)
[2019-01-17] MEDS ORDERED: GLUCOSE GEL 15 GRAM TUBE BUCCAL (15:30)
[2019-01-17] MEDS ORDERED: ONDANSETRON 4 MG INJ IV (15:30)
[2019-01-17] MEDS ORDERED: GLUCOSE GEL 15 GRAM TUBE PO ×2 (15:30)
[2019-01-17] MEDS ORDERED: GLUCAGON 1 MG INJ IM (15:30)
[2019-01-17 15:43] LABS: HEPATITIS B SURFACE ANTIGEN NEGATIVE (NEGATIVE)
[2019-01-17] MEDS ORDERED: INSULIN ASPART [NOVOLOG] 3 ML PEN SC (18:00)
[2019-01-17 18:41] LABS: TROPONIN-I 0.952 ng/ml (0.000-0.120)
[2019-01-17 19:54] LABS: POTASSIUM 4.6 mmol/L (3.5-5.1)
[2019-01-17] MEDS: HYDROmorphONE 0.5 MG/0.5 ML SYG IV (20:28)
[2019-01-17] MEDS: CALCIUM ACETATE 667 MG CAP PO (21:16)
[2019-01-17] MEDS: LORAZEPAM 0.5 MG TAB PO (22:25)
[2019-01-17 23:23] LABS: PROTIME 17.3 Sec (11.9-14.9); PT RATIO 1.4
[2019-01-17 23:24] LABS: PARTIAL THROMBOPLASTIN TIME 35.3 Sec (23.0-35.0)
[2019-01-17] MEDS: HEPARIN 5,000 UNIT/1 ML VIAL SC (23:30)
[2019-01-18] MEDS: DIPHENHYDRAMINE 50 MG INJ IV (02:15)
[2019-01-18] MEDS: PANTOPRAZOLE (EC) 40 MG TAB PO (06:10)
[2019-01-18 06:41] LABS: ADD MAN DIFF? NO
[2019-01-18 06:58] LABS: BASOPHIL # 0.1 10^3/ul (0.0-0.1); BASOPHILS % 0.8 % (0.0-2.0); EOSINOPHILS # 0.3 10^3/ul (0.0-0.5); EOSINOPHILS % 3.6 % (0.0-7.0); HEMATOCRIT 34.2 % (37.0-47.0); LYMPHOCYTES # 1.3 10^3/ul (0.8-2.9); LYMPHOCYTES % 16.9 % (15.0-51.0); MEAN CORPUSCULAR HEMOGLOBIN 25.9 pg (29.0-33.0); MEAN CORPUSCULAR HGB CONC 32.2 g/dl (32.0-37.0); MEAN CORPUSCULAR VOLUME 80.5 fl (82.0-101.0); MEAN PLATELET VOLUME 11.1 fl (7.4-10.4); MONOCYTE # 0.9 10^3/ul (0.3-0.9); MONOCYTES % 11.3 % (0.0-11.0); NEUTROPHIL # 5.2 10^3/ul (1.6-7.5); NEUTROPHILS % 66.8 % (39.0-77.0); NUCLEATED RED BLOOD CELLS% 0.5 /100WBC (0.0-0.0); PLATELET COUNT 210 10^3/UL (140-415); RED BLOOD COUNT 4.25 10^6/ul (4.20-5.40); RED CELL DISTRIBUTION WIDTH 15.8 % (11.5-14.5)
[2019-01-18 06:58] LABS: WHITE BLOOD COUNT 7.7 10^3/ul (4.8-10.8)
[2019-01-18 07:05] LABS: MAGNESIUM 1.9 mg/dl (1.7-2.5)
[2019-01-18 07:05] LABS: CHOL/HDL RATIO 4.7 RATIO; CHOLESTEROL 114 mg/dl (100-200); HDL CHOLESTEROL 24 mg/dl (33-92); LDL CHOLESTEROL,CALCULATED 57 mg/dl; TRIGLYCERIDES 167 mg/dl (0-149)
[2019-01-18 07:28] LABS: ALANINE AMINOTRANSFERASE 16 IU/L (13-69); ALBUMIN 3.4 g/dl (3.3-4.9); ALBUMIN/GLOBULIN RATIO 0.91; ALKALINE PHOSPHATASE 63 IU/L (42-121); ANION GAP 16 (5-13); ASPARTATE AMINO TRANSFERASE 26 IU/L (15-46); BILIRUBIN,INDIRECT 0.1 mg/dl (0-1.1); BILIRUBIN,TOTAL 0.1 mg/dl (0.2-1.3); BLOOD UREA NITROGEN 50 mg/dl (7-20); CALCIUM 8.7 mg/dl (8.4-10.2); CARBON DIOXIDE 25 mmol/L (21-31); CHLORIDE 95 mmol/L (97-110); CREATININE 7.86 mg/dl (0.44-1.00); GLUCOSE 130 mg/dl (70-220); POTASSIUM 5.1 mmol/L (3.5-5.1); SODIUM 136 mmol/L (135-144); TOTAL PROTEIN 7.1 g/dl (6.1-8.1)
[2019-01-18 07:29] LABS: HEMOGLOBIN A1C 7.5 % (0-5.9)
[2019-01-18] MEDS: ASPIRIN (EC) 81 MG TAB PO (08:38)
[2019-01-18] MEDS: LINAGLIPTIN 5 MG TABLET PO (08:38)
[2019-01-18] MEDS: FOLIC ACID 1 MG TAB PO (08:38)
[2019-01-18] MEDS: MULTIVIT/CA CARB/B CMPLX/FA TAB PO (08:38)
[2019-01-18] MEDS: ESCITALOPRAM 10 MG TAB PO (08:38)
[2019-01-18] MEDS: CALCIUM ACETATE 667 MG CAP PO ×3 (08:38→21:16)
[2019-01-18] MEDS: HYDROmorphONE 0.5 MG/0.5 ML SYG IV ×3 (08:39→19:53)
[2019-01-18] MEDS: AMLODIPINE 5 MG TAB PO (08:39)
[2019-01-18] MEDS: HEPARIN 5,000 UNIT/1 ML VIAL SC ×2 (08:41→21:26)
[2019-01-18] MEDS: CALAMINE/PRAMOXINE LOT 180 ML BTL TOP (11:30)
[2019-01-18 11:41] LABS: TROPONIN-I 0.627 ng/ml (0.000-0.120)
[2019-01-18] MEDS: hydrOXYzine HCL 10 MG TAB PO ×2 (12:57→21:16)
[2019-01-18] MEDS: INSULIN ASPART [NOVOLOG] 3 ML PEN SC ×3 (13:07→21:00)
[2019-01-18] MEDS: TRIAMCINOLONE ACET 0.1% 15 GM CR TOP ×2 (14:25→21:17)
[2019-01-18] MEDS: CALAMINE 170 ML LOT TOP (17:06)
[2019-01-18] MEDS: ZOLPIDEM 5 MG TAB PO (23:19)
[2019-01-19] MEDS: PANTOPRAZOLE (EC) 40 MG TAB PO (05:52)
[2019-01-19 06:28] LABS: ADD MAN DIFF? NO
[2019-01-19 06:34] LABS: WHITE BLOOD COUNT 6.9 10^3/ul (4.8-10.8)
[2019-01-19 06:34] LABS: BASOPHIL # 0.1 10^3/ul (0.0-0.1); BASOPHILS % 1.2 % (0.0-2.0); EOSINOPHILS # 0.4 10^3/ul (0.0-0.5); EOSINOPHILS % 6.4 % (0.0-7.0); HEMATOCRIT 32.1 % (37.0-47.0); HEMOGLOBIN 10.6 g/dl (12.0-16.0); LYMPHOCYTES # 1.7 10^3/ul (0.8-2.9); LYMPHOCYTES % 24.7 % (15.0-51.0); MEAN CORPUSCULAR HEMOGLOBIN 26.9 pg (29.0-33.0); MEAN CORPUSCULAR VOLUME 81.5 fl (82.0-101.0); MEAN PLATELET VOLUME 11.1 fl (7.4-10.4); MONOCYTE # 0.8 10^3/ul (0.3-0.9); NEUTROPHIL # 3.8 10^3/ul (1.6-7.5); NEUTROPHILS % 54.7 % (39.0-77.0); NUCLEATED RED BLOOD CELLS% 0.3 /100WBC (0.0-0.0); PLATELET COUNT 189 10^3/UL (140-415); RED BLOOD COUNT 3.94 10^6/ul (4.20-5.40); RED CELL DISTRIBUTION WIDTH 15.9 % (11.5-14.5)
[2019-01-19 06:49] LABS: CREATINE KINASE 46 IU/L (23-200)
[2019-01-19 06:51] LABS: ALANINE AMINOTRANSFERASE 17 IU/L (13-69); ALBUMIN 3.3 g/dl (3.3-4.9); ALBUMIN/GLOBULIN RATIO 0.84; ALKALINE PHOSPHATASE 55 IU/L (42-121); ANION GAP 17 (5-13); ASPARTATE AMINO TRANSFERASE 21 IU/L (15-46); BILIRUBIN,INDIRECT 0.1 mg/dl (0-1.1); BILIRUBIN,TOTAL 0.1 mg/dl (0.2-1.3); BLOOD UREA NITROGEN 56 mg/dl (7-20); CALCIUM 8.4 mg/dl (8.4-10.2); CARBON DIOXIDE 25 mmol/L (21-31); CHLORIDE 93 mmol/L (97-110); CREATININE 8.98 mg/dl (0.44-1.00); GLUCOSE 132 mg/dl (70-220); POTASSIUM 5.4 mmol/L (3.5-5.1); SODIUM 135 mmol/L (135-144); TOTAL PROTEIN 7.2 g/dl (6.1-8.1)
[2019-01-19 06:59] LABS: CHOLESTEROL 112 mg/dl (100-200); PHOSPHORUS 7.9 mg/dl (2.5-4.9)
[2019-01-19 06:59] LABS: CHOL/HDL RATIO 4.4 RATIO; HDL CHOLESTEROL 25 mg/dl (33-92); LDL CHOLESTEROL,CALCULATED 56 mg/dl; MAGNESIUM 1.9 mg/dl (1.7-2.5); TRIGLYCERIDES 153 mg/dl (0-149)
[2019-01-19 07:03] LABS: CK INDEX 5.1; CK-MB 2.34 ng/ml (0.0-2.4)
[2019-01-19 07:07] LABS: TROPONIN-I 0.314 ng/ml (0.000-0.120)
[2019-01-19] MEDS: INSULIN ASPART [NOVOLOG] 3 ML PEN SC ×4 (07:55→20:18)
[2019-01-19] MEDS: MULTIVIT/CA CARB/B CMPLX/FA TAB PO (08:09)
[2019-01-19] MEDS: hydrOXYzine HCL 10 MG TAB PO ×3 (08:09→20:20)
[2019-01-19] MEDS: ASPIRIN (EC) 81 MG TAB PO (08:09)
[2019-01-19] MEDS: CALCIUM ACETATE 667 MG CAP PO ×3 (08:09→20:20)
[2019-01-19] MEDS: FOLIC ACID 1 MG TAB PO (08:10)
[2019-01-19] MEDS: ESCITALOPRAM 10 MG TAB PO (08:10)
[2019-01-19] MEDS: AMLODIPINE 5 MG TAB PO (08:10)
[2019-01-19] MEDS: LINAGLIPTIN 5 MG TABLET PO (08:10)
[2019-01-19] MEDS: TRIAMCINOLONE ACET 0.1% 15 GM CR TOP ×2 (08:13→20:21)
[2019-01-19] MEDS: HEPARIN 5,000 UNIT/1 ML VIAL SC ×2 (08:13→20:32)
[2019-01-19] MEDS: CALAMINE 170 ML LOT TOP (08:14)
[2019-01-19] MEDS: REGADENOSON 0.4 MG/5 ML SYG (09:15)
[2019-01-19] MEDS: HYDROmorphONE 0.5 MG/0.5 ML SYG IV ×2 (11:41→19:57)
[2019-01-19] MEDS: ATORVASTATIN 10 MG TAB PO (20:20)
[2019-01-20] MEDS: ZOLPIDEM 5 MG TAB PO ×2 (02:54→22:22)
[2019-01-20 06:11] LABS: ADD MAN DIFF? NO
[2019-01-20 06:16] LABS: WHITE BLOOD COUNT 7.8 10^3/ul (4.8-10.8)
[2019-01-20 06:16] LABS: BASOPHIL # 0.1 10^3/ul (0.0-0.1); BASOPHILS % 0.9 % (0.0-2.0); EOSINOPHILS # 0.3 10^3/ul (0.0-0.5); EOSINOPHILS % 4.1 % (0.0-7.0); HEMATOCRIT 33.2 % (37.0-47.0); HEMOGLOBIN 10.8 g/dl (12.0-16.0); LYMPHOCYTES # 1.1 10^3/ul (0.8-2.9); LYMPHOCYTES % 14.2 % (15.0-51.0); MEAN CORPUSCULAR HEMOGLOBIN 26.9 pg (29.0-33.0); MEAN CORPUSCULAR HGB CONC 32.5 g/dl (32.0-37.0); MEAN CORPUSCULAR VOLUME 82.8 fl (82.0-101.0); MEAN PLATELET VOLUME 10.8 fl (7.4-10.4); MONOCYTE # 0.9 10^3/ul (0.3-0.9); NEUTROPHIL # 5.3 10^3/ul (1.6-7.5); NEUTROPHILS % 67.8 % (39.0-77.0); PLATELET COUNT 184 10^3/UL (140-415); RED BLOOD COUNT 4.01 10^6/ul (4.20-5.40); RED CELL DISTRIBUTION WIDTH 16.6 % (11.5-14.5)
[2019-01-20 06:42] LABS: ANION GAP 15 (5-13); BLOOD UREA NITROGEN 33 mg/dl (7-20); CALCIUM 8.2 mg/dl (8.4-10.2); CARBON DIOXIDE 28 mmol/L (21-31); CHLORIDE 95 mmol/L (97-110); CREATININE 6.23 mg/dl (0.44-1.00); GLUCOSE 190 mg/dl (70-220); POTASSIUM 4.5 mmol/L (3.5-5.1); SODIUM 138 mmol/L (135-144)
[2019-01-20 06:53] LABS: PHOSPHORUS 5.1 mg/dl (2.5-4.9)
[2019-01-20 06:53] LABS: MAGNESIUM 1.8 mg/dl (1.7-2.5)
[2019-01-20] MEDS: PANTOPRAZOLE (EC) 40 MG TAB PO (07:03)
[2019-01-20] MEDS: ASPIRIN (EC) 81 MG TAB PO (08:30)
[2019-01-20] MEDS: INSULIN ASPART [NOVOLOG] 3 ML PEN SC ×4 (08:30→20:23)
[2019-01-20] MEDS: LINAGLIPTIN 5 MG TABLET PO (08:30)
[2019-01-20] MEDS: MULTIVIT/CA CARB/B CMPLX/FA TAB PO (08:30)
[2019-01-20] MEDS: CALCIUM ACETATE 667 MG CAP PO ×3 (08:30→20:17)
[2019-01-20] MEDS: hydrOXYzine HCL 10 MG TAB PO ×3 (08:30→20:17)
[2019-01-20] MEDS: ESCITALOPRAM 10 MG TAB PO (08:30)
[2019-01-20] MEDS: AMLODIPINE 5 MG TAB PO (08:31)
[2019-01-20] MEDS: FOLIC ACID 1 MG TAB PO (08:31)
[2019-01-20] MEDS: CALAMINE 170 ML LOT TOP (09:00)
[2019-01-20] MEDS: HEPARIN 5,000 UNIT/1 ML VIAL SC ×2 (09:11→20:23)
[2019-01-20] MEDS: TRIAMCINOLONE ACET 0.1% 15 GM CR TOP ×2 (11:45→20:24)
[2019-01-20] MEDS: HYDROmorphONE 0.5 MG/0.5 ML SYG IV ×2 (11:59→17:33)
[2019-01-20] MEDS: ATORVASTATIN 10 MG TAB PO (20:17)
[2019-01-20] MEDS: traMADol 50 MG TAB GTB (20:17)
[2019-01-20] MEDS: DOCUSATE SODIUM 100 MG CAP PO (22:22)
[2019-01-21] MEDS: traMADol 50 MG TAB GTB (05:24)
[2019-01-21] MEDS: PANTOPRAZOLE (EC) 40 MG TAB PO (05:24)
[2019-01-21] MEDS: INSULIN ASPART [NOVOLOG] 3 ML PEN SC ×4 (07:55→21:00)
[2019-01-21] MEDS: CALAMINE 170 ML LOT TOP (09:00)
[2019-01-21] MEDS: traMADol 50 MG TAB PO ×2 (10:35→14:38)
[2019-01-21] MEDS: MULTIVIT/CA CARB/B CMPLX/FA TAB PO (10:35)
[2019-01-21] MEDS: AMLODIPINE 5 MG TAB PO (10:36)
[2019-01-21] MEDS: ESCITALOPRAM 10 MG TAB PO (10:36)
[2019-01-21] MEDS: ASPIRIN (EC) 81 MG TAB PO (10:37)
[2019-01-21] MEDS: LINAGLIPTIN 5 MG TABLET PO (10:37)
[2019-01-21] MEDS: hydrOXYzine HCL 10 MG TAB PO ×3 (10:37→21:03)
[2019-01-21] MEDS: CALCIUM ACETATE 667 MG CAP PO ×3 (10:37→21:03)
[2019-01-21] MEDS: FOLIC ACID 1 MG TAB PO (10:37)
[2019-01-21] MEDS: TRIAMCINOLONE ACET 0.1% 15 GM CR TOP ×2 (10:39→21:10)
[2019-01-21] MEDS: HEPARIN 5,000 UNIT/1 ML VIAL SC ×2 (10:50→21:06)
[2019-01-21 16:07] LABS: HAAIG REFLEX REFLEX FILED
[2019-01-21 17:08] LABS: HEPATITIS B SURFACE ANTIGEN NEGATIVE (NEGATIVE)
[2019-01-21 17:26] LABS: HEPATITIS B CORE ANTIBODY NEGATIVE (NEGATIVE); HEPATITIS C VIRAL ANTIBODY NEGATIVE (NEGATIVE)
[2019-01-21] MEDS: morphine (ER) 15 MG TAB PO ×2 (17:38→21:35)
[2019-01-21] MEDS: ATORVASTATIN 10 MG TAB PO (21:03)
[2019-01-21] MEDS: ZOLPIDEM 5 MG TAB PO (22:51)
[2019-01-22] MEDS: traMADol 50 MG TAB PO ×2 (04:34→17:31)
[2019-01-22 05:02] LABS: ADD MAN DIFF? NO
[2019-01-22 05:06] LABS: WHITE BLOOD COUNT 7.1 10^3/ul (4.8-10.8)
[2019-01-22 05:06] LABS: BASOPHIL # 0.1 10^3/ul (0.0-0.1); EOSINOPHILS # 0.5 10^3/ul (0.0-0.5); EOSINOPHILS % 6.5 % (0.0-7.0); HEMATOCRIT 34.6 % (37.0-47.0); HEMOGLOBIN 11.1 g/dl (12.0-16.0); LYMPHOCYTES # 1.5 10^3/ul (0.8-2.9); LYMPHOCYTES % 20.7 % (15.0-51.0); MEAN CORPUSCULAR HEMOGLOBIN 27.2 pg (29.0-33.0); MEAN CORPUSCULAR HGB CONC 32.1 g/dl (32.0-37.0); MEAN CORPUSCULAR VOLUME 84.8 fl (82.0-101.0); MEAN PLATELET VOLUME 10.6 fl (7.4-10.4); MONOCYTE # 0.7 10^3/ul (0.3-0.9); MONOCYTES % 10.4 % (0.0-11.0); NEUTROPHIL # 4.3 10^3/ul (1.6-7.5); NEUTROPHILS % 60.3 % (39.0-77.0); PLATELET COUNT 182 10^3/UL (140-415); RED BLOOD COUNT 4.08 10^6/ul (4.20-5.40); RED CELL DISTRIBUTION WIDTH 17.3 % (11.5-14.5)
[2019-01-22 05:38] LABS: ANION GAP 11 (5-13); BLOOD UREA NITROGEN 46 mg/dl (7-20); CALCIUM 8.4 mg/dl (8.4-10.2); CARBON DIOXIDE 30 mmol/L (21-31); CHLORIDE 91 mmol/L (97-110); CREATININE 8.44 mg/dl (0.44-1.00); GLUCOSE 125 mg/dl (70-220); POTASSIUM 5.2 mmol/L (3.5-5.1); SODIUM 132 mmol/L (135-144)
[2019-01-22] MEDS: PANTOPRAZOLE (EC) 40 MG TAB PO (06:51)
[2019-01-22] MEDS: INSULIN ASPART [NOVOLOG] 3 ML PEN SC ×4 (07:53→20:58)
[2019-01-22] MEDS: CALCIUM ACETATE 667 MG CAP PO ×3 (08:18→21:01)
[2019-01-22] MEDS: ASPIRIN (EC) 81 MG TAB PO (08:18)
[2019-01-22] MEDS: ESCITALOPRAM 10 MG TAB PO (08:18)
[2019-01-22] MEDS: morphine (ER) 15 MG TAB PO ×2 (08:18→21:01)
[2019-01-22] MEDS: hydrOXYzine HCL 10 MG TAB PO ×3 (08:18→21:00)
[2019-01-22] MEDS: FOLIC ACID 1 MG TAB PO (08:18)
[2019-01-22] MEDS: LINAGLIPTIN 5 MG TABLET PO (08:18)
[2019-01-22] MEDS: MULTIVIT/CA CARB/B CMPLX/FA TAB PO (08:18)
[2019-01-22] MEDS: HEPARIN 5,000 UNIT/1 ML VIAL SC ×2 (08:19→21:04)
[2019-01-22] MEDS: AMLODIPINE 5 MG TAB PO (08:19)
[2019-01-22] MEDS: TRIAMCINOLONE ACET 0.1% 15 GM CR TOP ×2 (12:07→21:05)
[2019-01-22] MEDS: CALAMINE 170 ML LOT TOP (12:08)
[2019-01-22] MEDS: ATORVASTATIN 10 MG TAB PO (21:00)
[2019-01-23] MEDS: traMADol 50 MG TAB PO ×3 (02:25→17:26)
[2019-01-23] MEDS: LORAZEPAM 0.5 MG TAB PO (03:30)
[2019-01-23] MEDS: PANTOPRAZOLE (EC) 40 MG TAB PO (06:00)
[2019-01-23] MEDS: ACETAMINOPHEN 325 MG TAB PO (06:51)
[2019-01-23] MEDS: INSULIN ASPART [NOVOLOG] 3 ML PEN SC ×4 (08:09→20:59)
[2019-01-23] MEDS: FOLIC ACID 1 MG TAB PO (08:30)
[2019-01-23] MEDS: AMLODIPINE 5 MG TAB PO (08:30)
[2019-01-23] MEDS: LINAGLIPTIN 5 MG TABLET PO (08:30)
[2019-01-23] MEDS: hydrOXYzine HCL 10 MG TAB PO ×3 (08:30→21:02)
[2019-01-23] MEDS: ASPIRIN (EC) 81 MG TAB PO (08:30)
[2019-01-23] MEDS: CALCIUM ACETATE 667 MG CAP PO ×3 (08:30→21:02)
[2019-01-23] MEDS: MULTIVIT/CA CARB/B CMPLX/FA TAB PO (08:30)
[2019-01-23] MEDS: ESCITALOPRAM 10 MG TAB PO (08:30)
[2019-01-23] MEDS: morphine (ER) 15 MG TAB PO ×2 (08:31→21:03)
[2019-01-23] MEDS: TRIAMCINOLONE ACET 0.1% 15 GM CR TOP ×2 (08:35→21:05)
[2019-01-23] MEDS: HEPARIN 5,000 UNIT/1 ML VIAL SC ×2 (08:37→21:02)
[2019-01-23] MEDS: CALAMINE 170 ML LOT TOP (09:51)
[2019-01-23] MEDS: ATORVASTATIN 10 MG TAB PO (21:02)
[2019-01-24] MEDS: traMADol 50 MG TAB PO (03:05)
[2019-01-24] MEDS: PANTOPRAZOLE (EC) 40 MG TAB PO (06:07)
[2019-01-24] MEDS: ACETAMINOPHEN 325 MG TAB PO (06:07)
[2019-01-24] MEDS: INSULIN ASPART [NOVOLOG] 3 ML PEN SC ×4 (08:00→20:08)
[2019-01-24] MEDS: AMLODIPINE 5 MG TAB PO (08:06)
[2019-01-24] MEDS: ESCITALOPRAM 10 MG TAB PO (09:37)
[2019-01-24] MEDS: morphine (ER) 15 MG TAB PO ×2 (09:37→20:11)
[2019-01-24] MEDS: hydrOXYzine HCL 10 MG TAB PO ×3 (09:37→20:09)
[2019-01-24] MEDS: FOLIC ACID 1 MG TAB PO (09:38)
[2019-01-24] MEDS: LINAGLIPTIN 5 MG TABLET PO (09:38)
[2019-01-24] MEDS: MULTIVIT/CA CARB/B CMPLX/FA TAB PO (09:38)
[2019-01-24] MEDS: ASPIRIN (EC) 81 MG TAB PO (09:38)
[2019-01-24] MEDS: CALCIUM ACETATE 667 MG CAP PO ×3 (09:38→20:15)
[2019-01-24] MEDS: HEPARIN 5,000 UNIT/1 ML VIAL SC ×2 (09:39→20:14)
[2019-01-24] MEDS: CALAMINE 170 ML LOT TOP (09:40)
[2019-01-24] MEDS: TRIAMCINOLONE ACET 0.1% 15 GM CR TOP ×2 (09:40→20:29)
[2019-01-24] MEDS: ATORVASTATIN 10 MG TAB PO (20:09)
[2019-01-25] MEDS: traMADol 50 MG TAB PO (04:10)
[2019-01-25] MEDS: PANTOPRAZOLE (EC) 40 MG TAB PO (05:34)
[2019-01-25 06:23] LABS: ADD MAN DIFF? NO
[2019-01-25 06:25] LABS: BASOPHIL # 0.1 10^3/ul (0.0-0.1); BASOPHILS % 0.8 % (0.0-2.0); EOSINOPHILS # 0.3 10^3/ul (0.0-0.5); EOSINOPHILS % 3.2 % (0.0-7.0); HEMATOCRIT 34.5 % (37.0-47.0); HEMOGLOBIN 10.7 g/dl (12.0-16.0); LYMPHOCYTES # 1.3 10^3/ul (0.8-2.9); LYMPHOCYTES % 14.2 % (15.0-51.0); MEAN CORPUSCULAR HEMOGLOBIN 27.3 pg (29.0-33.0); MEAN PLATELET VOLUME 10.9 fl (7.4-10.4); MONOCYTES % 11.3 % (0.0-11.0); NEUTROPHIL # 6.4 10^3/ul (1.6-7.5); NEUTROPHILS % 69.7 % (39.0-77.0); PLATELET COUNT 238 10^3/UL (140-415); RED BLOOD COUNT 3.92 10^6/ul (4.20-5.40); RED CELL DISTRIBUTION WIDTH 18.2 % (11.5-14.5)
[2019-01-25 06:25] LABS: WHITE BLOOD COUNT 9.2 10^3/ul (4.8-10.8)
[2019-01-25 06:51] LABS: PHOSPHORUS 5.3 mg/dl (2.5-4.9)
[2019-01-25 06:56] LABS: ALANINE AMINOTRANSFERASE 12 IU/L (13-69); ALBUMIN 3.3 g/dl (3.3-4.9); ALBUMIN/GLOBULIN RATIO 0.94; ALKALINE PHOSPHATASE 54 IU/L (42-121); ANION GAP 10 (5-13); ASPARTATE AMINO TRANSFERASE 19 IU/L (15-46); BILIRUBIN,INDIRECT 0.2 mg/dl (0-1.1); BILIRUBIN,TOTAL 0.2 mg/dl (0.2-1.3); BLOOD UREA NITROGEN 28 mg/dl (7-20); CALCIUM 8.7 mg/dl (8.4-10.2); CARBON DIOXIDE 30 mmol/L (21-31); CHLORIDE 95 mmol/L (97-110); CREATININE 5.02 mg/dl (0.44-1.00); GLUCOSE 128 mg/dl (70-220); POTASSIUM 4.6 mmol/L (3.5-5.1); SODIUM 135 mmol/L (135-144); TOTAL PROTEIN 6.8 g/dl (6.1-8.1)
[2019-01-25 07:54] LABS: MAGNESIUM 1.9 mg/dl (1.7-2.5)
[2019-01-25] MEDS: INSULIN ASPART [NOVOLOG] 3 ML PEN SC ×4 (08:00→21:00)
[2019-01-25] MEDS: AMLODIPINE 5 MG TAB PO (09:00)
[2019-01-25] MEDS: ESCITALOPRAM 10 MG TAB PO (09:53)
[2019-01-25] MEDS: ASPIRIN (EC) 81 MG TAB PO (09:53)
[2019-01-25] MEDS: FOLIC ACID 1 MG TAB PO (09:53)
[2019-01-25] MEDS: CALCIUM ACETATE 667 MG CAP PO ×3 (09:53→20:59)
[2019-01-25] MEDS: morphine (ER) 15 MG TAB PO ×2 (09:54→20:59)
[2019-01-25] MEDS: hydrOXYzine HCL 10 MG TAB PO ×3 (09:54→20:58)
[2019-01-25] MEDS: MULTIVIT/CA CARB/B CMPLX/FA TAB PO (09:54)
[2019-01-25] MEDS: LINAGLIPTIN 5 MG TABLET PO (09:54)
[2019-01-25] MEDS: TRIAMCINOLONE ACET 0.1% 15 GM CR TOP ×2 (09:56→21:11)
[2019-01-25] MEDS: HEPARIN 5,000 UNIT/1 ML VIAL SC ×2 (09:56→21:00)
[2019-01-25] MEDS: CALAMINE 170 ML LOT TOP (09:56)
[2019-01-25] MEDS: DOCUSATE SODIUM 100 MG CAP PO (17:57)
[2019-01-25] MEDS: MAGNESIUM HYDROXIDE 30ML CUP PO (17:57)
[2019-01-25] MEDS: ATORVASTATIN 10 MG TAB PO (20:58)
[2019-01-26] MEDS: PANTOPRAZOLE (EC) 40 MG TAB PO (05:54)
[2019-01-26] MEDS: INSULIN ASPART [NOVOLOG] 3 ML PEN SC ×4 (08:00→20:48)
[2019-01-26] MEDS: CALCIUM ACETATE 667 MG CAP PO ×3 (09:00→21:11)
[2019-01-26] MEDS: hydrOXYzine HCL 10 MG TAB PO ×2 (09:00→12:53)
[2019-01-26] MEDS: morphine (ER) 15 MG TAB PO ×3 (09:00→21:11)
[2019-01-26] MEDS: HEPARIN 5,000 UNIT/1 ML VIAL SC ×2 (09:00→21:12)
[2019-01-26] MEDS: ALBUMIN HUMAN 25% 100 ML IV (11:14)
[2019-01-26] MEDS: ESCITALOPRAM 10 MG TAB PO (12:53)
[2019-01-26] MEDS: MULTIVIT/CA CARB/B CMPLX/FA TAB PO (12:53)
[2019-01-26] MEDS: LINAGLIPTIN 5 MG TABLET PO (12:53)
[2019-01-26] MEDS: ASPIRIN (EC) 81 MG TAB PO (12:54)
[2019-01-26] MEDS: FOLIC ACID 1 MG TAB PO (12:54)
[2019-01-26] MEDS: TRIAMCINOLONE ACET 0.1% 15 GM CR TOP ×2 (12:56→21:14)
[2019-01-26] MEDS: CALAMINE 170 ML LOT TOP (12:56)
[2019-01-26] MEDS: IBUPROFEN 600 MG TAB PO (13:31)
[2019-01-26] MEDS: LIDOCAINE 1% (MPF) 5 ML VIAL (16:40)
[2019-01-26 16:41] LABS: CARCINOEMBRYONIC ANTIGEN 8.5 ng/ml (0.0-5.0)
[2019-01-26] MEDS: ATORVASTATIN 10 MG TAB PO (21:11)
[2019-01-27] MEDS: PANTOPRAZOLE (EC) 40 MG TAB PO (06:08)
[2019-01-27] MEDS: INSULIN ASPART [NOVOLOG] 3 ML PEN SC ×4 (08:00→20:40)
[2019-01-27] MEDS: morphine (ER) 15 MG TAB PO (08:48)
[2019-01-27] MEDS: FOLIC ACID 1 MG TAB PO (08:49)
[2019-01-27] MEDS: CALCIUM ACETATE 667 MG CAP PO ×3 (08:49→21:00)
[2019-01-27] MEDS: LINAGLIPTIN 5 MG TABLET PO (08:49)
[2019-01-27] MEDS: MULTIVIT/CA CARB/B CMPLX/FA TAB PO (08:49)
[2019-01-27] MEDS: HEPARIN 5,000 UNIT/1 ML VIAL SC ×2 (08:50→21:00)
[2019-01-27] MEDS: ESCITALOPRAM 10 MG TAB PO (08:50)
[2019-01-27] MEDS: ASPIRIN (EC) 81 MG TAB PO (08:50)
[2019-01-27] MEDS: TRIAMCINOLONE ACET 0.1% 15 GM CR TOP ×2 (08:51→21:00)
[2019-01-27] MEDS: CALAMINE 170 ML LOT TOP (08:51)
[2019-01-27 11:36] LABS: ADD MAN DIFF? NO
[2019-01-27 11:47] LABS: BASOPHIL # 0.1 10^3/ul (0.0-0.1); BASOPHILS % 0.6 % (0.0-2.0); EOSINOPHILS # 0.2 10^3/ul (0.0-0.5); EOSINOPHILS % 2.5 % (0.0-7.0); HEMATOCRIT 35.6 % (37.0-47.0); LYMPHOCYTES # 1.1 10^3/ul (0.8-2.9); LYMPHOCYTES % 12.5 % (15.0-51.0); MEAN CORPUSCULAR HEMOGLOBIN 27.3 pg (29.0-33.0); MEAN CORPUSCULAR HGB CONC 30.9 g/dl (32.0-37.0); MEAN CORPUSCULAR VOLUME 88.3 fl (82.0-101.0); MEAN PLATELET VOLUME 10.1 fl (7.4-10.4); MONOCYTE # 1.1 10^3/ul (0.3-0.9); MONOCYTES % 11.7 % (0.0-11.0); NEUTROPHIL # 6.4 10^3/ul (1.6-7.5); NEUTROPHILS % 71.6 % (39.0-77.0); PLATELET COUNT 296 10^3/UL (140-415); RED BLOOD COUNT 4.03 10^6/ul (4.20-5.40); RED CELL DISTRIBUTION WIDTH 18.6 % (11.5-14.5)
[2019-01-27 12:04] LABS: MAGNESIUM 2.2 mg/dl (1.7-2.5)
[2019-01-27 12:04] LABS: PHOSPHORUS 4.1 mg/dl (2.5-4.9)
[2019-01-27 12:05] LABS: ALANINE AMINOTRANSFERASE 30 IU/L (13-69); ALBUMIN 3.1 g/dl (3.3-4.9); ALBUMIN/GLOBULIN RATIO 0.91; ALKALINE PHOSPHATASE 52 IU/L (42-121); ANION GAP 10 (5-13); ASPARTATE AMINO TRANSFERASE 47 IU/L (15-46); BILIRUBIN,INDIRECT 0.2 mg/dl (0-1.1); BILIRUBIN,TOTAL 0.2 mg/dl (0.2-1.3); BLOOD UREA NITROGEN 36 mg/dl (7-20); CALCIUM 8.7 mg/dl (8.4-10.2); CARBON DIOXIDE 29 mmol/L (21-31); CHLORIDE 97 mmol/L (97-110); CREATININE 5.47 mg/dl (0.44-1.00); GLUCOSE 149 mg/dl (70-220); POTASSIUM 4.6 mmol/L (3.5-5.1); SODIUM 136 mmol/L (135-144); TOTAL PROTEIN 6.5 g/dl (6.1-8.1)
[2019-01-27] MEDS: DOCUSATE SODIUM 100 MG CAP PO (12:47)
[2019-01-27] MEDS: MAGNESIUM HYDROXIDE 30ML CUP PO (18:44)
[2019-01-27 18:57] LABS: AMMONIA < 9 umol/l (9-30)
[2019-01-27] MEDS: ALBUMIN HUMAN 5% 250 ML IV (19:08)
[2019-01-27] MEDS: BALSAM PERU/CASTOR OIL 60 GM TUBE TOP (21:00)
[2019-01-27] MEDS: ATORVASTATIN 10 MG TAB PO (21:00)
[2019-01-27] MEDS: SOD CHLORIDE 0.9% 500 ML IV (21:27)
[2019-01-27] MEDS: ALBUMIN HUMAN 25% 100 ML IV (21:53)
[2019-01-27] MEDS: DOPamine-D5W 1.6 MG/ML 250 ML IV (23:12)
[2019-01-27 23:58] LABS: LACTIC ACID 1.3 mmol/L (0.5-2.0)
[2019-01-28] MEDS: NORepinephrine 8MG/250 ML (PMX 250 ML IV (00:39)
[2019-01-28] MEDS: CEFEPIME 1GM/50 ML (PMX) 50 ML IVPB ×2 (00:40→08:18)
[2019-01-28] MEDS: SOD CHLORIDE 0.9% 250 ML IV (00:43)
[2019-01-28 01:45] LABS: ADD MAN DIFF? NO
[2019-01-28 01:46] LABS: BASOPHIL # 0.1 10^3/ul (0.0-0.1); BASOPHILS % 0.6 % (0.0-2.0); EOSINOPHILS # 0.2 10^3/ul (0.0-0.5); EOSINOPHILS % 1.2 % (0.0-7.0); HEMATOCRIT 36.3 % (37.0-47.0); HEMOGLOBIN 11.2 g/dl (12.0-16.0); LYMPHOCYTES # 1.1 10^3/ul (0.8-2.9); LYMPHOCYTES % 8.3 % (15.0-51.0); MEAN CORPUSCULAR HEMOGLOBIN 27.4 pg (29.0-33.0); MEAN CORPUSCULAR HGB CONC 30.9 g/dl (32.0-37.0); MEAN CORPUSCULAR VOLUME 88.8 fl (82.0-101.0); MEAN PLATELET VOLUME 10.6 fl (7.4-10.4); MONOCYTE # 1.4 10^3/ul (0.3-0.9); MONOCYTES % 10.6 % (0.0-11.0); NEUTROPHIL # 10.5 10^3/ul (1.6-7.5); NEUTROPHILS % 78.4 % (39.0-77.0); NUCLEATED RED BLOOD CELLS% 0.1 /100WBC (0.0-0.0); PLATELET COUNT 314 10^3/UL (140-415); RED BLOOD COUNT 4.09 10^6/ul (4.20-5.40); RED CELL DISTRIBUTION WIDTH 18.6 % (11.5-14.5)
[2019-01-28 01:46] LABS: WHITE BLOOD COUNT 13.4 10^3/ul (4.8-10.8)
[2019-01-28 01:52] LABS: ANION GAP 12 (5-13); BLOOD UREA NITROGEN 38 mg/dl (7-20); CALCIUM 9.2 mg/dl (8.4-10.2); CARBON DIOXIDE 27 mmol/L (21-31); CHLORIDE 97 mmol/L (97-110); CREATININE 6.12 mg/dl (0.44-1.00); GLUCOSE 163 mg/dl (70-220); POTASSIUM 4.6 mmol/L (3.5-5.1); SODIUM 136 mmol/L (135-144)
[2019-01-28 02:16] LABS: MAGNESIUM 2.3 mg/dl (1.7-2.5)
[2019-01-28 05:28] LABS: ADD MAN DIFF? NO
[2019-01-28 05:31] LABS: WHITE BLOOD COUNT 13.5 10^3/ul (4.8-10.8)
[2019-01-28 05:31] LABS: BASOPHIL # 0.1 10^3/ul (0.0-0.1); BASOPHILS % 0.7 % (0.0-2.0); EOSINOPHILS # 0.2 10^3/ul (0.0-0.5); EOSINOPHILS % 1.6 % (0.0-7.0); HEMATOCRIT 37.1 % (37.0-47.0); HEMOGLOBIN 11.4 g/dl (12.0-16.0); LYMPHOCYTES # 1.2 10^3/ul (0.8-2.9); LYMPHOCYTES % 8.6 % (15.0-51.0); MEAN CORPUSCULAR HEMOGLOBIN 27.3 pg (29.0-33.0); MEAN CORPUSCULAR HGB CONC 30.7 g/dl (32.0-37.0); MEAN CORPUSCULAR VOLUME 88.8 fl (82.0-101.0); MEAN PLATELET VOLUME 10.1 fl (7.4-10.4); MONOCYTE # 1.4 10^3/ul (0.3-0.9); MONOCYTES % 10.5 % (0.0-11.0); NEUTROPHIL # 10.5 10^3/ul (1.6-7.5); PLATELET COUNT 328 10^3/UL (140-415); RED BLOOD COUNT 4.18 10^6/ul (4.20-5.40)
[2019-01-28 05:49] LABS: MAGNESIUM 2.3 mg/dl (1.7-2.5)
[2019-01-28 05:49] LABS: PHOSPHORUS 4.2 mg/dl (2.5-4.9)
[2019-01-28 05:50] LABS: ALANINE AMINOTRANSFERASE 28 IU/L (13-69); ALBUMIN 3.5 g/dl (3.3-4.9); ALBUMIN/GLOBULIN RATIO 1.06; ALKALINE PHOSPHATASE 51 IU/L (42-121); ANION GAP 12 (5-13); ASPARTATE AMINO TRANSFERASE 41 IU/L (15-46); BILIRUBIN,INDIRECT 0.2 mg/dl (0-1.1); BILIRUBIN,TOTAL 0.2 mg/dl (0.2-1.3); BLOOD UREA NITROGEN 40 mg/dl (7-20); CALCIUM 8.8 mg/dl (8.4-10.2); CARBON DIOXIDE 26 mmol/L (21-31); CHLORIDE 99 mmol/L (97-110); CREATININE 6.14 mg/dl (0.44-1.00); GLUCOSE 183 mg/dl (70-220); POTASSIUM 4.6 mmol/L (3.5-5.1); SODIUM 137 mmol/L (135-144); TOTAL PROTEIN 6.8 g/dl (6.1-8.1)
[2019-01-28] MEDS: PANTOPRAZOLE (EC) 40 MG TAB PO (06:00)
[2019-01-28] MEDS: PHENYLephrine 20MG IN 250 ML 250 ML IV ×3 (06:35→13:28)
[2019-01-28] MEDS: INSULIN ASPART [NOVOLOG] 3 ML PEN SC ×4 (07:35→21:00)
[2019-01-28] MEDS: ALBUMIN HUMAN 25% 50 ML IV (08:14)
[2019-01-28] MEDS: ESCITALOPRAM 10 MG TAB PO (08:15)
[2019-01-28] MEDS: MULTIVIT/CA CARB/B CMPLX/FA TAB PO (08:15)
[2019-01-28] MEDS: ASPIRIN (EC) 81 MG TAB PO (08:15)
[2019-01-28] MEDS: FOLIC ACID 1 MG TAB PO (08:15)
[2019-01-28] MEDS: CALCIUM ACETATE 667 MG CAP PO ×3 (08:15→21:10)
[2019-01-28] MEDS: LINAGLIPTIN 5 MG TABLET PO (08:15)
[2019-01-28] MEDS: HEPARIN 5,000 UNIT/1 ML VIAL SC ×2 (08:17→21:19)
[2019-01-28] MEDS: TRIAMCINOLONE ACET 0.1% 15 GM CR TOP ×2 (09:00→21:00)
[2019-01-28] MEDS: CALAMINE 170 ML LOT TOP (09:00)
[2019-01-28] MEDS ORDERED: VANCOMYCIN IV PER PHARMACY XX (09:30)
[2019-01-28] MEDS: SOD CHLORIDE 0.9% 500 ML IV (09:59)
[2019-01-28] MEDS: VANCOMYCIN 1 GM (PMX) 250 ML IVPB (10:53)
[2019-01-28] MEDS: PHENYLephrine 40 MG in DEXTROSE 5% 246 ML IV ×3 (14:44→21:21)
[2019-01-28] MEDS: BALSAM PERU/CASTOR OIL 60 GM TUBE TOP ×2 (14:55→21:11)
[2019-01-28] MEDS: SOD CHLORIDE 0.45% 1,000 ML IV (14:55)
[2019-01-28] MEDS: ARTIFICIAL TEARS 15 ML OPH BOTH EYES ×2 (18:30→21:10)
[2019-01-28] MEDS: LACTULOSE 30ML CUP PO (21:10)
[2019-01-28] MEDS: ATORVASTATIN 10 MG TAB PO (21:10)
[2019-01-29] MEDS: PHENYLephrine 80 MG in DEXTROSE 5% 242 ML IV ×4 (00:23→18:17)
[2019-01-29 05:28] LABS: ADD MAN DIFF? NO
[2019-01-29 05:29] LABS: WHITE BLOOD COUNT 20.7 10^3/ul (4.8-10.8)
[2019-01-29 05:30] LABS: ABNORMAL IP MESSAGE 1; BASOPHIL # 0.1 10^3/ul (0.0-0.1); BASOPHILS % 0.4 % (0.0-2.0); EOSINOPHILS # 0.2 10^3/ul (0.0-0.5); EOSINOPHILS % 0.9 % (0.0-7.0); HEMATOCRIT 35.2 % (37.0-47.0); HEMOGLOBIN 10.7 g/dl (12.0-16.0); LYMPHOCYTES # 1.3 10^3/ul (0.8-2.9); LYMPHOCYTES % 6.3 % (15.0-51.0); MEAN CORPUSCULAR HEMOGLOBIN 27.2 pg (29.0-33.0); MEAN CORPUSCULAR HGB CONC 30.4 g/dl (32.0-37.0); MEAN CORPUSCULAR VOLUME 89.3 fl (82.0-101.0); MEAN PLATELET VOLUME 9.9 fl (7.4-10.4); MONOCYTE # 1.8 10^3/ul (0.3-0.9); MONOCYTES % 8.7 % (0.0-11.0); NEUTROPHIL # 17.1 10^3/ul (1.6-7.5); NEUTROPHILS % 82.5 % (39.0-77.0); PLATELET COUNT 339 10^3/UL (140-415); RED BLOOD COUNT 3.94 10^6/ul (4.20-5.40); RED CELL DISTRIBUTION WIDTH 18.6 % (11.5-14.5)
[2019-01-29 05:32] LABS: POSITIVE DIFF @See below
[2019-01-29] MEDS: LACTULOSE 30ML CUP PO ×3 (05:46→21:21)
[2019-01-29] MEDS: PANTOPRAZOLE (EC) 40 MG TAB PO (05:46)
[2019-01-29 05:59] LABS: PHOSPHORUS 3.9 mg/dl (2.5-4.9)
[2019-01-29 05:59] LABS: MAGNESIUM 2.4 mg/dl (1.7-2.5)
[2019-01-29 06:06] LABS: ALANINE AMINOTRANSFERASE 22 IU/L (13-69); ALBUMIN 3.4 g/dl (3.3-4.9); ALBUMIN/GLOBULIN RATIO 1.09; ALKALINE PHOSPHATASE 61 IU/L (42-121); ANION GAP 13 (5-13); ASPARTATE AMINO TRANSFERASE 39 IU/L (15-46); BILIRUBIN,INDIRECT 0.2 mg/dl (0-1.1); BILIRUBIN,TOTAL 0.2 mg/dl (0.2-1.3); BLOOD UREA NITROGEN 45 mg/dl (7-20); CALCIUM 8.7 mg/dl (8.4-10.2); CARBON DIOXIDE 23 mmol/L (21-31); CHLORIDE 97 mmol/L (97-110); CREATININE 6.89 mg/dl (0.44-1.00); GLUCOSE 177 mg/dl (70-220); POTASSIUM 4.7 mmol/L (3.5-5.1); SODIUM 133 mmol/L (135-144); TOTAL PROTEIN 6.5 g/dl (6.1-8.1)
[2019-01-29 07:31] LABS: PROCALCITONIN 0.59 ng/mL (0.00-0.10)
[2019-01-29] MEDS: INSULIN ASPART [NOVOLOG] 3 ML PEN SC ×4 (07:57→20:50)
[2019-01-29] MEDS: ASPIRIN (EC) 81 MG TAB PO (08:15)
[2019-01-29] MEDS: LINAGLIPTIN 5 MG TABLET PO (08:15)
[2019-01-29] MEDS: CEFEPIME 1GM/50 ML (PMX) 50 ML IVPB (08:15)
[2019-01-29] MEDS: MULTIVIT/CA CARB/B CMPLX/FA TAB PO (08:16)
[2019-01-29] MEDS: ESCITALOPRAM 10 MG TAB PO (08:16)
[2019-01-29] MEDS: CALCIUM ACETATE 667 MG CAP PO ×3 (08:16→20:46)
[2019-01-29] MEDS: FOLIC ACID 1 MG TAB PO (08:16)
[2019-01-29] MEDS: ARTIFICIAL TEARS 15 ML OPH BOTH EYES ×4 (08:17→20:46)
[2019-01-29] MEDS: CALAMINE 170 ML LOT TOP (08:17)
[2019-01-29] MEDS: TRIAMCINOLONE ACET 0.1% 15 GM CR TOP ×2 (08:18→20:45)
[2019-01-29] MEDS: BALSAM PERU/CASTOR OIL 60 GM TUBE TOP ×2 (08:18→20:44)
[2019-01-29] MEDS: HEPARIN 5,000 UNIT/1 ML VIAL SC ×2 (08:23→20:49)
[2019-01-29] MEDS: RIFAXIMIN 550 MG TAB PO ×2 (14:30→20:45)
[2019-01-29] MEDS: ALBUMIN HUMAN 25% 50 ML IV (15:23)
[2019-01-29] MEDS: ALBUMIN HUMAN 25% 100 ML IV (15:33)
[2019-01-29 17:27] LABS: AMMONIA 10 umol/l (9-30)
[2019-01-29] MEDS: metroNIDAZOLE 500 MG/NS (PMX) 100 ML IVPB (17:58)
[2019-01-29] MEDS: MEROPENEM 500MG/50 ML (PMX) 50 ML IVPB (18:04)
[2019-01-29] MEDS: SOD CHLORIDE 0.45% 1,000 ML IV (18:05)
[2019-01-29] MEDS: MUPIROCIN 2% 22 GM OINT TOP (20:44)
[2019-01-29] MEDS: ATORVASTATIN 10 MG TAB PO (20:45)
[2019-01-30] MEDS: metroNIDAZOLE 500 MG/NS (PMX) 100 ML IVPB ×3 (01:02→16:57)
[2019-01-30] MEDS: PHENYLephrine 80 MG in DEXTROSE 5% 242 ML IV ×2 (01:10→08:17)
[2019-01-30] MEDS ORDERED: HALOPERIDOL 5 MG INJ IV (04:30)
[2019-01-30 05:17] LABS: ADD MAN DIFF? NO
[2019-01-30 05:18] LABS: WHITE BLOOD COUNT 18.8 10^3/ul (4.8-10.8)
[2019-01-30 05:18] LABS: ABNORMAL IP MESSAGE 1; BASOPHIL # 0.1 10^3/ul (0.0-0.1); BASOPHILS % 0.5 % (0.0-2.0); EOSINOPHILS # 0.3 10^3/ul (0.0-0.5); EOSINOPHILS % 1.4 % (0.0-7.0); HEMATOCRIT 34.6 % (37.0-47.0); HEMOGLOBIN 10.5 g/dl (12.0-16.0); LYMPHOCYTES # 1.5 10^3/ul (0.8-2.9); MEAN CORPUSCULAR HEMOGLOBIN 26.9 pg (29.0-33.0); MEAN CORPUSCULAR HGB CONC 30.3 g/dl (32.0-37.0); MEAN CORPUSCULAR VOLUME 88.7 fl (82.0-101.0); MEAN PLATELET VOLUME 10.2 fl (7.4-10.4); MONOCYTE # 1.7 10^3/ul (0.3-0.9); MONOCYTES % 9.3 % (0.0-11.0); NEUTROPHILS % 79.8 % (39.0-77.0); PLATELET COUNT 306 10^3/UL (140-415); RED CELL DISTRIBUTION WIDTH 19.2 % (11.5-14.5)
[2019-01-30] MEDS: LACTULOSE 30ML CUP PO ×3 (05:20→22:00)
[2019-01-30 05:26] LABS: POSITIVE DIFF @See below
[2019-01-30 05:51] LABS: ALANINE AMINOTRANSFERASE 26 IU/L (13-69); ALBUMIN 3.4 g/dl (3.3-4.9); ALBUMIN/GLOBULIN RATIO 1.06; ALKALINE PHOSPHATASE 64 IU/L (42-121); ANION GAP 13 (5-13); ASPARTATE AMINO TRANSFERASE 29 IU/L (15-46); BILIRUBIN,INDIRECT 0.2 mg/dl (0-1.1); BILIRUBIN,TOTAL 0.2 mg/dl (0.2-1.3); BLOOD UREA NITROGEN 33 mg/dl (7-20); CALCIUM 8.8 mg/dl (8.4-10.2); CARBON DIOXIDE 24 mmol/L (21-31); CHLORIDE 97 mmol/L (97-110); CREATININE 5.36 mg/dl (0.44-1.00); GLUCOSE 159 mg/dl (70-220); POTASSIUM 4.7 mmol/L (3.5-5.1); SODIUM 134 mmol/L (135-144); TOTAL PROTEIN 6.6 g/dl (6.1-8.1)
[2019-01-30 05:52] LABS: PHOSPHORUS 3.1 mg/dl (2.5-4.9)
[2019-01-30 05:52] LABS: MAGNESIUM 2.4 mg/dl (1.7-2.5)
[2019-01-30 06:03] LABS: VANCOMYCIN,RANDOM 8.4 ug/ml
[2019-01-30] MEDS: PANTOPRAZOLE (EC) 40 MG TAB PO (06:36)
[2019-01-30] MEDS: INSULIN ASPART [NOVOLOG] 3 ML PEN SC ×4 (07:58→20:38)
[2019-01-30] MEDS: HEPARIN 5,000 UNIT/1 ML VIAL SC ×2 (07:59→20:47)
[2019-01-30] MEDS: FOLIC ACID 1 MG TAB PO (08:02)
[2019-01-30] MEDS: CALAMINE 170 ML LOT TOP (08:02)
[2019-01-30] MEDS: CALCIUM ACETATE 667 MG CAP PO ×3 (08:02→20:37)
[2019-01-30] MEDS: LINAGLIPTIN 5 MG TABLET PO (08:02)
[2019-01-30] MEDS: ASPIRIN (EC) 81 MG TAB PO (08:02)
[2019-01-30] MEDS: ESCITALOPRAM 10 MG TAB PO (08:02)
[2019-01-30] MEDS: ARTIFICIAL TEARS 15 ML OPH BOTH EYES ×4 (08:02→20:47)
[2019-01-30] MEDS: MUPIROCIN 2% 22 GM OINT TOP ×2 (08:03→20:38)
[2019-01-30] MEDS: BALSAM PERU/CASTOR OIL 60 GM TUBE TOP ×2 (08:03→20:38)
[2019-01-30] MEDS: RIFAXIMIN 550 MG TAB PO ×2 (08:05→20:37)
[2019-01-30] MEDS: TRIAMCINOLONE ACET 0.1% 15 GM CR TOP ×2 (08:05→21:57)
[2019-01-30] MEDS: MULTIVIT/CA CARB/B CMPLX/FA TAB PO (08:05)
[2019-01-30 09:13] LABS: IRON 32 ug/dl (35-150)
[2019-01-30 09:22] LABS: RETICULOCYTE RBC 3.84
[2019-01-30 09:22] LABS: % IRON SATURATION 21 % SAT (22-52); RETICULOCYTE COUNT # 0.116 X10^6 (0.020-0.110); TOTAL IRON BINDING CAPACITY 150 ug/dl (241-421)
[2019-01-30 10:21] LABS: FOLATE > 20.0 ng/ml (2.8-20.0)
[2019-01-30] MEDS: VANCOMYCIN 1 GM 250 ML IVPB (13:45)
[2019-01-30] MEDS: SOD CHLORIDE 0.45% 1,000 ML IV (13:45)
[2019-01-30 13:51] LABS: OCCULT BLOOD STOOL POSITIVE (NEGATIVE)
[2019-01-30] MEDS: MEROPENEM 500MG/50 ML (PMX) 50 ML IVPB (18:12)
[2019-01-30] MEDS: ATORVASTATIN 10 MG TAB PO (20:35)
[2019-01-30] MEDS: MELATONIN 5 MG TABLET PO (21:53)
[2019-01-31] MEDS: metroNIDAZOLE 500 MG/NS (PMX) 100 ML IVPB ×3 (01:56→19:37)
[2019-01-31] MEDS: SOD CHLORIDE 0.45% 1,000 ML IV (04:07)
[2019-01-31 05:13] LABS: ADD MAN DIFF? NO
[2019-01-31 05:28] LABS: WHITE BLOOD COUNT 12.7 10^3/ul (4.8-10.8)
[2019-01-31 05:29] LABS: BASOPHIL # 0.1 10^3/ul (0.0-0.1); BASOPHILS % 0.6 % (0.0-2.0); EOSINOPHILS # 0.3 10^3/ul (0.0-0.5); EOSINOPHILS % 2.2 % (0.0-7.0); HEMATOCRIT 31.5 % (37.0-47.0); HEMOGLOBIN 9.8 g/dl (12.0-16.0); LYMPHOCYTES # 1.1 10^3/ul (0.8-2.9); LYMPHOCYTES % 8.8 % (15.0-51.0); MEAN CORPUSCULAR HEMOGLOBIN 27.5 pg (29.0-33.0); MEAN CORPUSCULAR HGB CONC 31.1 g/dl (32.0-37.0); MEAN CORPUSCULAR VOLUME 88.5 fl (82.0-101.0); MEAN PLATELET VOLUME 10.3 fl (7.4-10.4); MONOCYTES % 7.7 % (0.0-11.0); NEUTROPHIL # 10.1 10^3/ul (1.6-7.5); NEUTROPHILS % 79.8 % (39.0-77.0); NUCLEATED RED BLOOD CELLS% 0.2 /100WBC (0.0-0.0); PLATELET COUNT 251 10^3/UL (140-415); RED BLOOD COUNT 3.56 10^6/ul (4.20-5.40); RED CELL DISTRIBUTION WIDTH 18.6 % (11.5-14.5)
[2019-01-31] MEDS: LACTULOSE 30ML CUP PO ×3 (06:00→21:33)
[2019-01-31 06:12] LABS: ALANINE AMINOTRANSFERASE 30 IU/L (13-69); ALBUMIN 2.9 g/dl (3.3-4.9); ALKALINE PHOSPHATASE 61 IU/L (42-121); ANION GAP 12 (5-13); ASPARTATE AMINO TRANSFERASE 22 IU/L (15-46); BILIRUBIN,INDIRECT 0.2 mg/dl (0-1.1); BILIRUBIN,TOTAL 0.2 mg/dl (0.2-1.3); BLOOD UREA NITROGEN 36 mg/dl (7-20); CALCIUM 8.2 mg/dl (8.4-10.2); CARBON DIOXIDE 24 mmol/L (21-31); CHLORIDE 95 mmol/L (97-110); CREATININE 5.89 mg/dl (0.44-1.00); GLUCOSE 115 mg/dl (70-220); MAGNESIUM 2.4 mg/dl (1.7-2.5); POTASSIUM 4.4 mmol/L (3.5-5.1); SODIUM 131 mmol/L (135-144); TOTAL PROTEIN 5.8 g/dl (6.1-8.1)
[2019-01-31] MEDS: PANTOPRAZOLE (EC) 40 MG TAB PO (06:34)
[2019-01-31] MEDS: INSULIN ASPART [NOVOLOG] 3 ML PEN SC ×4 (07:35→21:00)
[2019-01-31] MEDS: ESCITALOPRAM 10 MG TAB PO (09:00)
[2019-01-31] MEDS: FOLIC ACID 1 MG TAB PO (09:08)
[2019-01-31] MEDS: ARTIFICIAL TEARS 15 ML OPH BOTH EYES ×4 (09:08→21:34)
[2019-01-31] MEDS: ASPIRIN (EC) 81 MG TAB PO (09:09)
[2019-01-31] MEDS: CALCIUM ACETATE 667 MG CAP PO ×3 (09:10→21:35)
[2019-01-31] MEDS: MULTIVIT/CA CARB/B CMPLX/FA TAB PO (09:10)
[2019-01-31] MEDS: CALAMINE 170 ML LOT TOP (09:11)
[2019-01-31] MEDS: RIFAXIMIN 550 MG TAB PO ×2 (09:11→21:35)
[2019-01-31] MEDS: LINAGLIPTIN 5 MG TABLET PO (09:11)
[2019-01-31] MEDS: TRIAMCINOLONE ACET 0.1% 15 GM CR TOP ×2 (09:11→21:33)
[2019-01-31] MEDS: BALSAM PERU/CASTOR OIL 60 GM TUBE TOP ×2 (09:12→21:33)
[2019-01-31] MEDS: HEPARIN 5,000 UNIT/1 ML VIAL SC ×2 (09:20→21:39)
[2019-01-31] MEDS: MUPIROCIN 2% 22 GM OINT TOP ×2 (11:37→21:33)
[2019-01-31] MEDS: MEROPENEM 500MG/50 ML (PMX) 50 ML IVPB (18:09)
[2019-01-31] MEDS: MELATONIN 5 MG TABLET PO (21:34)
[2019-01-31] MEDS: ATORVASTATIN 10 MG TAB PO (21:34)
[2019-02-01] MEDS: metroNIDAZOLE 500 MG/NS (PMX) 100 ML IVPB ×3 (01:30→17:59)
[2019-02-01 06:37] LABS: ADD MAN DIFF? NO
[2019-02-01 06:40] LABS: WHITE BLOOD COUNT 9.6 10^3/ul (4.8-10.8)
[2019-02-01 06:40] LABS: BASOPHIL # 0.1 10^3/ul (0.0-0.1); BASOPHILS % 0.8 % (0.0-2.0); EOSINOPHILS # 0.3 10^3/ul (0.0-0.5); HEMATOCRIT 33.2 % (37.0-47.0); HEMOGLOBIN 10.3 g/dl (12.0-16.0); LYMPHOCYTES # 1.3 10^3/ul (0.8-2.9); LYMPHOCYTES % 13.2 % (15.0-51.0); MEAN CORPUSCULAR HEMOGLOBIN 26.9 pg (29.0-33.0); MEAN CORPUSCULAR VOLUME 86.7 fl (82.0-101.0); MEAN PLATELET VOLUME 9.8 fl (7.4-10.4); MONOCYTE # 0.8 10^3/ul (0.3-0.9); MONOCYTES % 8.2 % (0.0-11.0); NEUTROPHILS % 73.4 % (39.0-77.0); PLATELET COUNT 242 10^3/UL (140-415); RED BLOOD COUNT 3.83 10^6/ul (4.20-5.40); RED CELL DISTRIBUTION WIDTH 18.8 % (11.5-14.5)
[2019-02-01] MEDS: LACTULOSE 30ML CUP PO ×3 (06:56→23:00)
[2019-02-01] MEDS: PANTOPRAZOLE (EC) 40 MG TAB PO (06:56)
[2019-02-01 07:20] LABS: MAGNESIUM 2.4 mg/dl (1.7-2.5)
[2019-02-01 07:20] LABS: PHOSPHORUS 3.5 mg/dl (2.5-4.9)
[2019-02-01 07:23] LABS: ANION GAP 12 (5-13); BLOOD UREA NITROGEN 43 mg/dl (7-20); CALCIUM 8.9 mg/dl (8.4-10.2); CARBON DIOXIDE 22 mmol/L (21-31); CHLORIDE 94 mmol/L (97-110); CREATININE 6.56 mg/dl (0.44-1.00); GLUCOSE 98 mg/dl (70-220); POTASSIUM 4.6 mmol/L (3.5-5.1); SODIUM 128 mmol/L (135-144)
[2019-02-01] MEDS: INSULIN ASPART [NOVOLOG] 3 ML PEN SC ×4 (08:00→21:00)
[2019-02-01] MEDS: CALCIUM ACETATE 667 MG CAP PO ×3 (09:00→20:56)
[2019-02-01] MEDS: ARTIFICIAL TEARS 15 ML OPH BOTH EYES ×4 (09:00→21:12)
[2019-02-01] MEDS: MULTIVIT/CA CARB/B CMPLX/FA TAB PO (13:54)
[2019-02-01] MEDS: ESCITALOPRAM 10 MG TAB PO (13:55)
[2019-02-01] MEDS: RIFAXIMIN 550 MG TAB PO ×2 (13:55→20:56)
[2019-02-01] MEDS: FOLIC ACID 1 MG TAB PO (13:55)
[2019-02-01] MEDS: LINAGLIPTIN 5 MG TABLET PO (13:55)
[2019-02-01] MEDS: MUPIROCIN 2% 22 GM OINT TOP ×2 (13:56→21:11)
[2019-02-01] MEDS: BALSAM PERU/CASTOR OIL 60 GM TUBE TOP ×2 (13:56→21:11)
[2019-02-01] MEDS: CALAMINE 170 ML LOT TOP (13:56)
[2019-02-01] MEDS: TRIAMCINOLONE ACET 0.1% 15 GM CR TOP ×2 (13:57→21:11)
[2019-02-01] MEDS: EPOETIN ALFA-EPBX (ESRD) 4,000 UNIT/ML VIAL SC (17:00)
[2019-02-01] MEDS: BISACODYL (EC) 5 MG TAB PO ×2 (17:57→20:55)
[2019-02-01] MEDS: MEROPENEM 500MG/50 ML (PMX) 50 ML IVPB (17:58)
[2019-02-01] MEDS: PEG/ELECTROLYTES 4L BTL PO ×2 (17:58→20:59)
[2019-02-01] MEDS: MELATONIN 5 MG TABLET PO (20:56)
[2019-02-01] MEDS: ATORVASTATIN 10 MG TAB PO (20:56)
[2019-02-02] MEDS: metroNIDAZOLE 500 MG/NS (PMX) 100 ML IVPB (01:52)
[2019-02-02] MEDS: LACTULOSE 30ML CUP PO ×3 (05:35→22:00)
[2019-02-02] MEDS: PANTOPRAZOLE (EC) 40 MG TAB PO (05:35)
[2019-02-02 06:37] LABS: ADD MAN DIFF? NO
[2019-02-02 06:48] LABS: BASOPHIL # 0.1 10^3/ul (0.0-0.1); BASOPHILS % 0.8 % (0.0-2.0); EOSINOPHILS # 0.3 10^3/ul (0.0-0.5); EOSINOPHILS % 2.6 % (0.0-7.0); HEMATOCRIT 34.2 % (37.0-47.0); HEMOGLOBIN 10.8 g/dl (12.0-16.0); LYMPHOCYTES # 1.2 10^3/ul (0.8-2.9); LYMPHOCYTES % 12.8 % (15.0-51.0); MEAN CORPUSCULAR HEMOGLOBIN 27.3 pg (29.0-33.0); MEAN CORPUSCULAR HGB CONC 31.6 g/dl (32.0-37.0); MEAN CORPUSCULAR VOLUME 86.6 fl (82.0-101.0); MEAN PLATELET VOLUME 10.3 fl (7.4-10.4); MONOCYTE # 1.1 10^3/ul (0.3-0.9); NEUTROPHIL # 6.7 10^3/ul (1.6-7.5); NEUTROPHILS % 69.6 % (39.0-77.0); PLATELET COUNT 259 10^3/UL (140-415); RED BLOOD COUNT 3.95 10^6/ul (4.20-5.40)
[2019-02-02 06:48] LABS: WHITE BLOOD COUNT 9.6 10^3/ul (4.8-10.8)
[2019-02-02 06:59] LABS: PROTIME 17.3 Sec (11.9-14.9); PT RATIO 1.4
[2019-02-02 07:00] LABS: PARTIAL THROMBOPLASTIN TIME 39.4 Sec (23.0-35.0)
[2019-02-02 07:24] LABS: VANCOMYCIN,RANDOM 13.7 ug/ml
[2019-02-02 07:27] LABS: ALANINE AMINOTRANSFERASE 24 IU/L (13-69); ALBUMIN/GLOBULIN RATIO 0.96; ALKALINE PHOSPHATASE 77 IU/L (42-121); ANION GAP 11 (5-13); ASPARTATE AMINO TRANSFERASE 26 IU/L (15-46); BILIRUBIN,INDIRECT 0.2 mg/dl (0-1.1); BILIRUBIN,TOTAL 0.2 mg/dl (0.2-1.3); BLOOD UREA NITROGEN 27 mg/dl (7-20); CALCIUM 8.6 mg/dl (8.4-10.2); CARBON DIOXIDE 26 mmol/L (21-31); CHLORIDE 95 mmol/L (97-110); GLUCOSE 121 mg/dl (70-220); SODIUM 132 mmol/L (135-144); TOTAL PROTEIN 6.1 g/dl (6.1-8.1)
[2019-02-02] MEDS: INSULIN ASPART [NOVOLOG] 3 ML PEN SC ×4 (08:00→20:50)
[2019-02-02] MEDS: MULTIVIT/CA CARB/B CMPLX/FA TAB PO (09:00)
[2019-02-02] MEDS: FOLIC ACID 1 MG TAB PO (09:00)
[2019-02-02] MEDS: RIFAXIMIN 550 MG TAB PO ×2 (09:00→20:48)
[2019-02-02] MEDS: CALAMINE 170 ML LOT TOP (09:00)
[2019-02-02] MEDS: ARTIFICIAL TEARS 15 ML OPH BOTH EYES ×4 (09:00→20:51)
[2019-02-02] MEDS: CALCIUM ACETATE 667 MG CAP PO ×3 (09:00→20:48)
[2019-02-02] MEDS: ESCITALOPRAM 10 MG TAB PO (14:02)
[2019-02-02] MEDS: VANCOMYCIN 1 GM 250 ML IVPB (14:02)
[2019-02-02] MEDS: LINAGLIPTIN 5 MG TABLET PO (14:03)
[2019-02-02] MEDS: MUPIROCIN 2% 22 GM OINT TOP ×2 (14:04→20:49)
[2019-02-02] MEDS: BALSAM PERU/CASTOR OIL 60 GM TUBE TOP ×2 (14:04→20:49)
[2019-02-02] MEDS: TRIAMCINOLONE ACET 0.1% 15 GM CR TOP ×2 (14:05→20:49)
[2019-02-02] MEDS ORDERED: GENTAMICIN IV PER PHARMACY XX (15:00)
[2019-02-02] MEDS: GENTAMICIN 120 MG/NS (PMX) 100 ML IVPB (16:52)
[2019-02-02] MEDS: ATORVASTATIN 10 MG TAB PO (20:48)
[2019-02-02] MEDS: MELATONIN 5 MG TABLET PO (20:48)
[2019-02-03] MEDS: PANTOPRAZOLE (EC) 40 MG TAB PO (06:23)
[2019-02-03] MEDS: LACTULOSE 30ML CUP PO ×3 (06:23→21:50)
[2019-02-03] MEDS: TRIAMCINOLONE ACET 0.1% 15 GM CR TOP ×2 (07:54→22:02)
[2019-02-03] MEDS: BALSAM PERU/CASTOR OIL 60 GM TUBE TOP ×2 (07:54→21:47)
[2019-02-03] MEDS: CALAMINE 170 ML LOT TOP (07:55)
[2019-02-03] MEDS: FOLIC ACID 1 MG TAB PO (07:56)
[2019-02-03] MEDS: RIFAXIMIN 550 MG TAB PO ×2 (07:56→22:14)
[2019-02-03] MEDS: ESCITALOPRAM 10 MG TAB PO (07:56)
[2019-02-03] MEDS: LINAGLIPTIN 5 MG TABLET PO (07:56)
[2019-02-03] MEDS: MULTIVIT/CA CARB/B CMPLX/FA TAB PO (07:56)
[2019-02-03] MEDS: CALCIUM ACETATE 667 MG CAP PO ×3 (07:57→22:14)
[2019-02-03] MEDS: ARTIFICIAL TEARS 15 ML OPH BOTH EYES ×4 (07:57→21:46)
[2019-02-03] MEDS: MUPIROCIN 2% 22 GM OINT TOP ×2 (08:01→21:46)
[2019-02-03 08:31] LABS: ADD MAN DIFF? NO
[2019-02-03 08:38] LABS: BASOPHIL # 0.1 10^3/ul (0.0-0.1); EOSINOPHILS # 0.3 10^3/ul (0.0-0.5); HEMATOCRIT 35.8 % (37.0-47.0); HEMOGLOBIN 11.1 g/dl (12.0-16.0); LYMPHOCYTES # 1.5 10^3/ul (0.8-2.9); LYMPHOCYTES % 13.5 % (15.0-51.0); MEAN CORPUSCULAR HEMOGLOBIN 26.9 pg (29.0-33.0); MEAN CORPUSCULAR VOLUME 86.9 fl (82.0-101.0); MEAN PLATELET VOLUME 9.8 fl (7.4-10.4); MONOCYTE # 1.2 10^3/ul (0.3-0.9); MONOCYTES % 11.4 % (0.0-11.0); NEUTROPHIL # 7.2 10^3/ul (1.6-7.5); NEUTROPHILS % 66.5 % (39.0-77.0); PLATELET COUNT 277 10^3/UL (140-415); RED BLOOD COUNT 4.12 10^6/ul (4.20-5.40); RED CELL DISTRIBUTION WIDTH 19.3 % (11.5-14.5)
[2019-02-03 08:38] LABS: WHITE BLOOD COUNT 10.8 10^3/ul (4.8-10.8)
[2019-02-03 08:56] LABS: ANION GAP 12 (5-13); BLOOD UREA NITROGEN 32 mg/dl (7-20); CALCIUM 8.6 mg/dl (8.4-10.2); CARBON DIOXIDE 24 mmol/L (21-31); CHLORIDE 95 mmol/L (97-110); CREATININE 5.57 mg/dl (0.44-1.00); GLUCOSE 147 mg/dl (70-220); POTASSIUM 4.3 mmol/L (3.5-5.1); SODIUM 131 mmol/L (135-144)
[2019-02-03 08:58] LABS: PHOSPHORUS 3.4 mg/dl (2.5-4.9)
[2019-02-03 08:58] LABS: MAGNESIUM 2.1 mg/dl (1.7-2.5)
[2019-02-03] MEDS: INSULIN ASPART [NOVOLOG] 3 ML PEN SC ×4 (09:09→21:00)
[2019-02-03] MEDS: GENTAMICIN 60 MG in SOD CHLORIDE 0.9% 50 ML IVPB (16:48)
[2019-02-03] MEDS: EPOETIN ALFA-EPBX (ESRD) 4,000 UNIT/ML VIAL SC (18:12)
[2019-02-03] MEDS: MELATONIN 5 MG TABLET PO (22:14)
[2019-02-03] MEDS: ATORVASTATIN 10 MG TAB PO (22:14)
[2019-02-04] MEDS: PANTOPRAZOLE (EC) 40 MG TAB PO (05:48)
[2019-02-04] MEDS: LACTULOSE 30ML CUP PO ×3 (05:48→22:00)
[2019-02-04 06:38] LABS: ABNORMAL IP MESSAGE 1; HEMATOCRIT 33.7 % (37.0-47.0); HEMOGLOBIN 10.7 g/dl (12.0-16.0); MEAN CORPUSCULAR HEMOGLOBIN 27.2 pg (29.0-33.0); MEAN CORPUSCULAR HGB CONC 31.8 g/dl (32.0-37.0); MEAN CORPUSCULAR VOLUME 85.8 fl (82.0-101.0); MEAN PLATELET VOLUME 9.7 fl (7.4-10.4); PLATELET COUNT 262 10^3/UL (140-415); RED BLOOD COUNT 3.93 10^6/ul (4.20-5.40); RED CELL DISTRIBUTION WIDTH 19.3 % (11.5-14.5)
[2019-02-04 06:38] LABS: WHITE BLOOD COUNT 11.1 10^3/ul (4.8-10.8)
[2019-02-04 06:53] LABS: POSITIVE DIFF @See below
[2019-02-04 06:54] LABS: ADD MAN DIFF? YES
[2019-02-04 07:19] LABS: ALANINE AMINOTRANSFERASE 26 IU/L (13-69); ALBUMIN 2.8 g/dl (3.3-4.9); ALBUMIN/GLOBULIN RATIO 0.87; ALKALINE PHOSPHATASE 59 IU/L (42-121); ANION GAP 10 (5-13); ASPARTATE AMINO TRANSFERASE 24 IU/L (15-46); BILIRUBIN,INDIRECT 0.1 mg/dl (0-1.1); BILIRUBIN,TOTAL 0.1 mg/dl (0.2-1.3); BLOOD UREA NITROGEN 25 mg/dl (7-20); CALCIUM 8.6 mg/dl (8.4-10.2); CARBON DIOXIDE 27 mmol/L (21-31); CHLORIDE 95 mmol/L (97-110); GLUCOSE 125 mg/dl (70-220); POTASSIUM 4.2 mmol/L (3.5-5.1); SODIUM 132 mmol/L (135-144)
[2019-02-04] MEDS: INSULIN ASPART [NOVOLOG] 3 ML PEN SC ×4 (08:00→21:00)
[2019-02-04 08:05] LABS: CANCER ANTIGEN 19-9 < 1.4 U/ml (0.0-37.0)
[2019-02-04 08:11] LABS: ANISOCYTOSIS 1+ (0-0); BAND NEUTROPHILS #M 0.6 10^3/ul (0.0-0.6); BAND NEUTROPHILS % (M) 6 % (0-4); BASOPHIL #M 0.1 10^3/ul (0.0-0.0); BASOPHILS % (M) 1 % (0-2); BURR CELLS 1+ (0-0); EOSINOPHILS % (M) 1 % (0-7); LYMPHOCYTES #M 0.5 10^3/ul (0.8-2.9); LYMPHOCYTES % (M) 5 % (15-51); MONOCYTE #M 1.2 10^3/ul (0.3-0.9); MONOCYTES % (M) 11 % (0-11); MYELOCYTES #M 0.1 10^3/ul (0.0-0.0); MYELOCYTES % (M) 1 % (0-0); PLATELET ESTIMATE NORMAL; POIKILOCYTOSIS 2+ (0-0); POLYCHROMASIA 1+ (0-0); REACTIVE LYMPHOCYTES #M 0.3 10^3/ul (0.0-0.0); REACTIVE LYMPHOCYTES% (M) 3 % (0-0); SEG NEUT #M 8.1 10^3/ul (1.6-7.5); SEGMENTED NEUTROPHILS (M) % 72 % (39-77); SMUDGE%M 4 % (0-0)
[2019-02-04] MEDS: CALCIUM ACETATE 667 MG CAP PO ×3 (09:00→22:38)
[2019-02-04] MEDS: ESCITALOPRAM 10 MG TAB PO (09:17)
[2019-02-04] MEDS: ARTIFICIAL TEARS 15 ML OPH BOTH EYES ×4 (09:17→22:37)
[2019-02-04] MEDS: LINAGLIPTIN 5 MG TABLET PO (09:17)
[2019-02-04] MEDS: RIFAXIMIN 550 MG TAB PO ×2 (09:17→22:38)
[2019-02-04] MEDS: CALAMINE 170 ML LOT TOP (09:17)
[2019-02-04] MEDS: MULTIVIT/CA CARB/B CMPLX/FA TAB PO (09:17)
[2019-02-04] MEDS: BALSAM PERU/CASTOR OIL 60 GM TUBE TOP ×2 (09:17→22:37)
[2019-02-04] MEDS: TRIAMCINOLONE ACET 0.1% 15 GM CR TOP ×2 (09:17→22:36)
[2019-02-04] MEDS: MUPIROCIN 2% 22 GM OINT TOP ×2 (09:17→22:36)
[2019-02-04] MEDS: FOLIC ACID 1 MG TAB PO (09:17)
[2019-02-04] MEDS: LIDOCAINE 1% (MPF) 5 ML VIAL (11:11)
[2019-02-04 11:35] LABS: FLD MN% 75.1 %; FLD PMN% 24.9 %; FLD RBC 2000 /uL; FLD WBC 365 /cmm
[2019-02-04 12:08] LABS: FLUID LD 257 U/L; FLUID TYPE ASCITIES FLUID
[2019-02-04 13:07] LABS: FLD TYPE PARACENTHESIS
[2019-02-04 13:07] LABS: FLD CLARITY HAZY; FLD COLOR YELLOW; PATH REVIEW? YES
[2019-02-04] MEDS: ALBUMIN HUMAN 25% 50 ML IV (15:22)
[2019-02-04 19:24] LABS: ALPHA FETOPROTEIN 1.26 IU/L (0.00-7.21)
[2019-02-04] MEDS: MELATONIN 5 MG TABLET PO (22:38)
[2019-02-04] MEDS: ATORVASTATIN 10 MG TAB PO (22:38)
[2019-02-05 05:52] LABS: ABNORMAL IP MESSAGE 1; HEMATOCRIT 26.2 % (37.0-47.0); HEMOGLOBIN 8.4 g/dl (12.0-16.0); MEAN CORPUSCULAR HEMOGLOBIN 27.7 pg (29.0-33.0); MEAN CORPUSCULAR HGB CONC 32.1 g/dl (32.0-37.0); MEAN CORPUSCULAR VOLUME 86.5 fl (82.0-101.0); MEAN PLATELET VOLUME 10.1 fl (7.4-10.4); PLATELET COUNT 272 10^3/UL (140-415); RED BLOOD COUNT 3.03 10^6/ul (4.20-5.40)
[2019-02-05 05:52] LABS: WHITE BLOOD COUNT 14.3 10^3/ul (4.8-10.8)
[2019-02-05] MEDS: LACTULOSE 30ML CUP PO ×3 (05:55→21:46)
[2019-02-05] MEDS: PANTOPRAZOLE (EC) 40 MG TAB PO (05:56)
[2019-02-05 05:58] LABS: ADD MAN DIFF? YES; POSITIVE DIFF @See below
[2019-02-05 06:17] LABS: ALANINE AMINOTRANSFERASE 25 IU/L (13-69); ALBUMIN/GLOBULIN RATIO 0.86; ALKALINE PHOSPHATASE 43 IU/L (42-121); ANION GAP 7 (5-13); ASPARTATE AMINO TRANSFERASE 19 IU/L (15-46); BILIRUBIN,INDIRECT 0.2 mg/dl (0-1.1); BILIRUBIN,TOTAL 0.2 mg/dl (0.2-1.3); BLOOD UREA NITROGEN 30 mg/dl (7-20); CALCIUM 8.3 mg/dl (8.4-10.2); CARBON DIOXIDE 27 mmol/L (21-31); CHLORIDE 97 mmol/L (97-110); GLUCOSE 124 mg/dl (70-220); POTASSIUM 4.3 mmol/L (3.5-5.1); SODIUM 131 mmol/L (135-144); TOTAL PROTEIN 4.3 g/dl (6.1-8.1)
[2019-02-05 06:20] LABS: VANCOMYCIN,RANDOM 17.6 ug/ml
[2019-02-05 06:25] LABS: PHOSPHORUS 3.1 mg/dl (2.5-4.9)
[2019-02-05 07:33] LABS: ANISOCYTOSIS 1+ (0-0); BAND NEUTROPHILS #M 0.7 10^3/ul (0.0-0.6); BAND NEUTROPHILS % (M) 5 % (0-4); LYMPHOCYTES #M 0.8 10^3/ul (0.8-2.9); LYMPHOCYTES % (M) 6 % (15-51); METAMYELOCYTES #M 0.2 10^3/ul (0.0-0.0); METAMYELOCYTES %M 2 % (0-0); MONOCYTE #M 1.1 10^3/ul (0.3-0.9); MONOCYTES % (M) 8 % (0-11); MYELOCYTES #M 0.1 10^3/ul (0.0-0.0); MYELOCYTES % (M) 1 % (0-0); PLATELET ESTIMATE NORMAL; REACTIVE LYMPHOCYTES #M 0.7 10^3/ul (0.0-0.0); REACTIVE LYMPHOCYTES% (M) 5 % (0-0); SEG NEUT #M 10.5 10^3/ul (1.6-7.5); SEGMENTED NEUTROPHILS (M) % 73 % (39-77); SMUDGE%M 11 % (0-0)
[2019-02-05] MEDS: INSULIN ASPART [NOVOLOG] 3 ML PEN SC ×4 (07:50→21:00)
[2019-02-05] MEDS: MULTIVIT/CA CARB/B CMPLX/FA TAB PO (08:50)
[2019-02-05] MEDS: CALCIUM ACETATE 667 MG CAP PO ×3 (08:50→21:45)
[2019-02-05] MEDS: FOLIC ACID 1 MG TAB PO (08:50)
[2019-02-05] MEDS: ESCITALOPRAM 10 MG TAB PO (08:50)
[2019-02-05] MEDS: LINAGLIPTIN 5 MG TABLET PO (08:50)
[2019-02-05] MEDS: RIFAXIMIN 550 MG TAB PO ×2 (08:50→21:45)
[2019-02-05] MEDS: MUPIROCIN 2% 22 GM OINT TOP ×2 (08:57→21:46)
[2019-02-05] MEDS: TRIAMCINOLONE ACET 0.1% 15 GM CR TOP ×2 (08:59→21:46)
[2019-02-05] MEDS: BALSAM PERU/CASTOR OIL 60 GM TUBE TOP ×2 (08:59→21:46)
[2019-02-05] MEDS: CALAMINE 170 ML LOT TOP (09:00)
[2019-02-05] MEDS: ARTIFICIAL TEARS 15 ML OPH BOTH EYES ×4 (09:02→21:46)
[2019-02-05] MEDS ORDERED: MEROPENEM 500MG/50 ML (PMX) 50 ML IVPB (13:00)
[2019-02-05] MEDS: MEROPENEM 500MG/50 ML (PMX) 50 ML IVPB (13:31)
[2019-02-05] MEDS: EPOETIN ALFA-EPBX (ESRD) 4,000 UNIT/ML VIAL SC (17:43)
[2019-02-05] MEDS: MELATONIN 5 MG TABLET PO (21:45)
[2019-02-05] MEDS: ATORVASTATIN 10 MG TAB PO (21:45)
[2019-02-06] MEDS: LACTULOSE 30ML CUP PO ×3 (05:43→21:28)
[2019-02-06] MEDS: PANTOPRAZOLE (EC) 40 MG TAB PO (05:43)
[2019-02-06 06:00] LABS: WHITE BLOOD COUNT 12.2 10^3/ul (4.8-10.8)
[2019-02-06 06:00] LABS: ADD MAN DIFF? NO; BASOPHIL # 0.1 10^3/ul (0.0-0.1); BASOPHILS % 0.5 % (0.0-2.0); EOSINOPHILS # 0.3 10^3/ul (0.0-0.5); EOSINOPHILS % 2.4 % (0.0-7.0); HEMATOCRIT 23.2 % (37.0-47.0); HEMOGLOBIN 7.4 g/dl (12.0-16.0); LYMPHOCYTES # 1.8 10^3/ul (0.8-2.9); LYMPHOCYTES % 14.3 % (15.0-51.0); MEAN CORPUSCULAR HEMOGLOBIN 27.7 pg (29.0-33.0); MEAN CORPUSCULAR HGB CONC 31.9 g/dl (32.0-37.0); MEAN CORPUSCULAR VOLUME 86.9 fl (82.0-101.0); MEAN PLATELET VOLUME 9.8 fl (7.4-10.4); MONOCYTE # 1.5 10^3/ul (0.3-0.9); MONOCYTES % 12.3 % (0.0-11.0); NEUTROPHIL # 8.1 10^3/ul (1.6-7.5); NEUTROPHILS % 66.4 % (39.0-77.0); PLATELET COUNT 290 10^3/UL (140-415); RED BLOOD COUNT 2.67 10^6/ul (4.20-5.40); RED CELL DISTRIBUTION WIDTH 19.5 % (11.5-14.5)
[2019-02-06 06:46] LABS: ALANINE AMINOTRANSFERASE 22 IU/L (13-69); ALBUMIN 2.1 g/dl (3.3-4.9); ALKALINE PHOSPHATASE 50 IU/L (42-121); ANION GAP 6 (5-13); ASPARTATE AMINO TRANSFERASE 23 IU/L (15-46); BILIRUBIN,INDIRECT 0.2 mg/dl (0-1.1); BILIRUBIN,TOTAL 0.2 mg/dl (0.2-1.3); BLOOD UREA NITROGEN 19 mg/dl (7-20); CALCIUM 8.2 mg/dl (8.4-10.2); CARBON DIOXIDE 30 mmol/L (21-31); CHLORIDE 97 mmol/L (97-110); CREATININE 3.99 mg/dl (0.44-1.00); GLUCOSE 129 mg/dl (70-220); POTASSIUM 4.2 mmol/L (3.5-5.1); SODIUM 133 mmol/L (135-144); TOTAL PROTEIN 4.7 g/dl (6.1-8.1)
[2019-02-06 06:53] LABS: PHOSPHORUS 2.7 mg/dl (2.5-4.9)
[2019-02-06 06:53] LABS: MAGNESIUM 1.9 mg/dl (1.7-2.5)
[2019-02-06] MEDS: INSULIN ASPART [NOVOLOG] 3 ML PEN SC ×4 (07:55→21:00)
[2019-02-06] MEDS: VANCOMYCIN 1 GM 250 ML IVPB (08:41)
[2019-02-06] MEDS: LINAGLIPTIN 5 MG TABLET PO (08:45)
[2019-02-06] MEDS: CALCIUM ACETATE 667 MG CAP PO ×3 (08:45→21:25)
[2019-02-06] MEDS: ESCITALOPRAM 10 MG TAB PO (08:45)
[2019-02-06] MEDS: RIFAXIMIN 550 MG TAB PO ×2 (08:45→21:25)
[2019-02-06] MEDS: MULTIVIT/CA CARB/B CMPLX/FA TAB PO (08:45)
[2019-02-06] MEDS: FOLIC ACID 1 MG TAB PO (08:45)
[2019-02-06] MEDS: MUPIROCIN 2% 22 GM OINT TOP ×2 (08:46→21:28)
[2019-02-06] MEDS: ARTIFICIAL TEARS 15 ML OPH BOTH EYES ×4 (08:46→21:32)
[2019-02-06] MEDS: BALSAM PERU/CASTOR OIL 60 GM TUBE TOP ×2 (08:47→21:28)
[2019-02-06] MEDS: CALAMINE 170 ML LOT TOP (08:48)
[2019-02-06] MEDS: TRIAMCINOLONE ACET 0.1% 15 GM CR TOP ×2 (08:49→21:28)
[2019-02-06] MEDS: SOD CHLORIDE 0.9% 250 ML IV* (10:04)
[2019-02-06] MEDS: MEROPENEM 500MG/50 ML (PMX) 50 ML IVPB (13:16)
[2019-02-06 14:54] LABS: HEMATOCRIT 23.2 % (37.0-47.0); HEMOGLOBIN 7.3 g/dl (12.0-16.0)
[2019-02-06 15:31] LABS: IMMEDIATE SPIN CROSSMATCH 1 1
[2019-02-06] MEDS: ATORVASTATIN 10 MG TAB PO (21:25)
[2019-02-06] MEDS: MELATONIN 5 MG TABLET PO (21:25)
[2019-02-07] MEDS: LACTULOSE 30ML CUP PO ×3 (05:26→20:55)
[2019-02-07] MEDS: PANTOPRAZOLE (EC) 40 MG TAB PO (05:26)
[2019-02-07 05:43] LABS: ADD MAN DIFF? NO
[2019-02-07 05:48] LABS: WHITE BLOOD COUNT 12.2 10^3/ul (4.8-10.8)
[2019-02-07 05:48] LABS: BASOPHIL # 0.1 10^3/ul (0.0-0.1); BASOPHILS % 0.6 % (0.0-2.0); EOSINOPHILS # 0.4 10^3/ul (0.0-0.5); HEMATOCRIT 26.6 % (37.0-47.0); HEMOGLOBIN 8.5 g/dl (12.0-16.0); LYMPHOCYTES # 1.6 10^3/ul (0.8-2.9); LYMPHOCYTES % 13.4 % (15.0-51.0); MEAN CORPUSCULAR HEMOGLOBIN 27.9 pg (29.0-33.0); MEAN CORPUSCULAR VOLUME 87.2 fl (82.0-101.0); MEAN PLATELET VOLUME 9.9 fl (7.4-10.4); MONOCYTE # 1.3 10^3/ul (0.3-0.9); MONOCYTES % 10.3 % (0.0-11.0); NEUTROPHIL # 8.5 10^3/ul (1.6-7.5); NEUTROPHILS % 69.7 % (39.0-77.0); PLATELET COUNT 291 10^3/UL (140-415); RED BLOOD COUNT 3.05 10^6/ul (4.20-5.40); RED CELL DISTRIBUTION WIDTH 18.6 % (11.5-14.5)
[2019-02-07 06:06] LABS: PHOSPHORUS 3.3 mg/dl (2.5-4.9)
[2019-02-07 06:15] LABS: ANION GAP 8 (5-13); BLOOD UREA NITROGEN 24 mg/dl (7-20); CALCIUM 8.3 mg/dl (8.4-10.2); CARBON DIOXIDE 28 mmol/L (21-31); CHLORIDE 96 mmol/L (97-110); GLUCOSE 123 mg/dl (70-220); POTASSIUM 4.5 mmol/L (3.5-5.1); SODIUM 132 mmol/L (135-144)
[2019-02-07] MEDS: LIDOCAINE 2% (SDV) 5 ML INJ (07:54)
[2019-02-07] MEDS: PROPOFOL 60 ML (07:54)
[2019-02-07] MEDS: INSULIN ASPART [NOVOLOG] 3 ML PEN SC ×4 (07:54→20:54)
[2019-02-07] MEDS: ARTIFICIAL TEARS 15 ML OPH BOTH EYES ×4 (08:43→20:52)
[2019-02-07] MEDS: CALCIUM ACETATE 667 MG CAP PO ×3 (08:43→20:53)
[2019-02-07] MEDS: FOLIC ACID 1 MG TAB PO (08:43)
[2019-02-07] MEDS: RIFAXIMIN 550 MG TAB PO ×2 (08:44→20:52)
[2019-02-07] MEDS: ESCITALOPRAM 10 MG TAB PO (08:44)
[2019-02-07] MEDS: MULTIVIT/CA CARB/B CMPLX/FA TAB PO (08:44)
[2019-02-07] MEDS: BALSAM PERU/CASTOR OIL 60 GM TUBE TOP ×2 (08:44→20:54)
[2019-02-07] MEDS: LINAGLIPTIN 5 MG TABLET PO (08:44)
[2019-02-07] MEDS: CALAMINE 170 ML LOT TOP (08:45)
[2019-02-07] MEDS: TRIAMCINOLONE ACET 0.1% 15 GM CR TOP ×2 (08:46→20:54)
[2019-02-07] MEDS: MUPIROCIN 2% 22 GM OINT TOP ×2 (08:46→20:54)
[2019-02-07] MEDS: MEROPENEM 500MG/50 ML (PMX) 50 ML IVPB (13:04)
[2019-02-07] MEDS: MELATONIN 5 MG TABLET PO (20:52)
[2019-02-07] MEDS: ATORVASTATIN 10 MG TAB PO (20:53)
[2019-02-08 05:39] LABS: ADD MAN DIFF? NO
[2019-02-08 05:52] LABS: BASOPHIL # 0.1 10^3/ul (0.0-0.1); BASOPHILS % 0.6 % (0.0-2.0); EOSINOPHILS # 0.4 10^3/ul (0.0-0.5); EOSINOPHILS % 3.4 % (0.0-7.0); HEMATOCRIT 26.8 % (37.0-47.0); HEMOGLOBIN 8.7 g/dl (12.0-16.0); LYMPHOCYTES # 1.6 10^3/ul (0.8-2.9); LYMPHOCYTES % 12.5 % (15.0-51.0); MEAN CORPUSCULAR HEMOGLOBIN 28.5 pg (29.0-33.0); MEAN CORPUSCULAR HGB CONC 32.5 g/dl (32.0-37.0); MEAN CORPUSCULAR VOLUME 87.9 fl (82.0-101.0); MEAN PLATELET VOLUME 9.6 fl (7.4-10.4); MONOCYTE # 1.1 10^3/ul (0.3-0.9); NEUTROPHIL # 9.1 10^3/ul (1.6-7.5); NEUTROPHILS % 72.6 % (39.0-77.0); PLATELET COUNT 314 10^3/UL (140-415); RED BLOOD COUNT 3.05 10^6/ul (4.20-5.40); RED CELL DISTRIBUTION WIDTH 18.2 % (11.5-14.5)
[2019-02-08 05:52] LABS: WHITE BLOOD COUNT 12.5 10^3/ul (4.8-10.8)
[2019-02-08] MEDS: LACTULOSE 30ML CUP PO ×3 (06:00→22:00)
[2019-02-08 06:08] LABS: PHOSPHORUS 3.7 mg/dl (2.5-4.9)
[2019-02-08] MEDS: PANTOPRAZOLE (EC) 40 MG TAB PO (06:18)
[2019-02-08 06:29] LABS: ALANINE AMINOTRANSFERASE 21 IU/L (13-69); ALBUMIN 2.3 g/dl (3.3-4.9); ALBUMIN/GLOBULIN RATIO 0.85; ALKALINE PHOSPHATASE 54 IU/L (42-121); ANION GAP 6 (5-13); ASPARTATE AMINO TRANSFERASE 22 IU/L (15-46); BILIRUBIN,INDIRECT 0.3 mg/dl (0-1.1); BILIRUBIN,TOTAL 0.3 mg/dl (0.2-1.3); BLOOD UREA NITROGEN 27 mg/dl (7-20); CALCIUM 8.4 mg/dl (8.4-10.2); CARBON DIOXIDE 29 mmol/L (21-31); CHLORIDE 95 mmol/L (97-110); GLUCOSE 112 mg/dl (70-220); POTASSIUM 4.6 mmol/L (3.5-5.1); SODIUM 130 mmol/L (135-144)
[2019-02-08] MEDS: INSULIN ASPART [NOVOLOG] 3 ML PEN SC ×4 (08:00→20:50)
[2019-02-08] MEDS: CALCIUM ACETATE 667 MG CAP PO ×3 (08:37→22:00)
[2019-02-08] MEDS: LINAGLIPTIN 5 MG TABLET PO (08:37)
[2019-02-08] MEDS: MULTIVIT/CA CARB/B CMPLX/FA TAB PO (08:37)
[2019-02-08] MEDS: ARTIFICIAL TEARS 15 ML OPH BOTH EYES ×4 (08:37→21:00)
[2019-02-08] MEDS: FOLIC ACID 1 MG TAB PO (08:38)
[2019-02-08] MEDS: ESCITALOPRAM 10 MG TAB PO (08:38)
[2019-02-08] MEDS: RIFAXIMIN 550 MG TAB PO ×2 (08:38→22:00)
[2019-02-08] MEDS: TRIAMCINOLONE ACET 0.1% 15 GM CR TOP ×2 (08:38→21:00)
[2019-02-08] MEDS: MUPIROCIN 2% 22 GM OINT TOP ×2 (08:39→21:00)
[2019-02-08] MEDS: BALSAM PERU/CASTOR OIL 60 GM TUBE TOP ×2 (08:39→21:00)
[2019-02-08] MEDS: CALAMINE 170 ML LOT TOP (09:19)
[2019-02-08] MEDS: MEROPENEM 500MG/50 ML (PMX) 50 ML IVPB (18:48)
[2019-02-08] MEDS: EPOETIN ALFA-EPBX (ESRD) 4,000 UNIT/ML VIAL SC (18:52)
[2019-02-08] MEDS: ATORVASTATIN 10 MG TAB PO (21:59)
[2019-02-08] MEDS: MELATONIN 5 MG TABLET PO (22:00)
[2019-02-08] MEDS: ZOLPIDEM 5 MG TAB PO (23:57)
[2019-02-09] MEDS: ZOLPIDEM 5 MG TAB PO ×2 (00:20→23:32)
[2019-02-09] MEDS: LACTULOSE 30ML CUP PO ×3 (05:50→21:18)
[2019-02-09] MEDS: PANTOPRAZOLE (EC) 40 MG TAB PO (05:50)
[2019-02-09 06:34] LABS: ADD MAN DIFF? NO
[2019-02-09 06:58] LABS: WHITE BLOOD COUNT 11.2 10^3/ul (4.8-10.8)
[2019-02-09 06:58] LABS: BASOPHIL # 0.1 10^3/ul (0.0-0.1); BASOPHILS % 0.8 % (0.0-2.0); EOSINOPHILS # 0.3 10^3/ul (0.0-0.5); EOSINOPHILS % 2.9 % (0.0-7.0); HEMATOCRIT 28.3 % (37.0-47.0); LYMPHOCYTES # 1.4 10^3/ul (0.8-2.9); LYMPHOCYTES % 12.3 % (15.0-51.0); MEAN CORPUSCULAR HEMOGLOBIN 28.6 pg (29.0-33.0); MEAN CORPUSCULAR HGB CONC 31.8 g/dl (32.0-37.0); MEAN CORPUSCULAR VOLUME 89.8 fl (82.0-101.0); MEAN PLATELET VOLUME 9.6 fl (7.4-10.4); MONOCYTE # 1.1 10^3/ul (0.3-0.9); MONOCYTES % 9.5 % (0.0-11.0); NEUTROPHIL # 8.2 10^3/ul (1.6-7.5); NEUTROPHILS % 73.1 % (39.0-77.0); PLATELET COUNT 338 10^3/UL (140-415); RED BLOOD COUNT 3.15 10^6/ul (4.20-5.40); RED CELL DISTRIBUTION WIDTH 18.2 % (11.5-14.5)
[2019-02-09 07:11] LABS: ANION GAP 6 (5-13); BLOOD UREA NITROGEN 16 mg/dl (7-20); CALCIUM 8.9 mg/dl (8.4-10.2); CARBON DIOXIDE 31 mmol/L (21-31); CHLORIDE 96 mmol/L (97-110); CREATININE 4.16 mg/dl (0.44-1.00); GLUCOSE 118 mg/dl (70-220); POTASSIUM 4.5 mmol/L (3.5-5.1); SODIUM 133 mmol/L (135-144)
[2019-02-09 07:19] LABS: PHOSPHORUS 3.4 mg/dl (2.5-4.9)
[2019-02-09 07:19] LABS: MAGNESIUM 1.9 mg/dl (1.7-2.5)
[2019-02-09] MEDS: INSULIN ASPART [NOVOLOG] 3 ML PEN SC ×4 (07:51→21:00)
[2019-02-09] MEDS: MULTIVIT/CA CARB/B CMPLX/FA TAB PO (09:00)
[2019-02-09] MEDS: ARTIFICIAL TEARS 15 ML OPH BOTH EYES ×3 (09:18→21:15)
[2019-02-09] MEDS: TRIAMCINOLONE ACET 0.1% 15 GM CR TOP ×2 (09:19→21:17)
[2019-02-09] MEDS: MUPIROCIN 2% 22 GM OINT TOP ×3 (09:19→21:16)
[2019-02-09] MEDS: BALSAM PERU/CASTOR OIL 60 GM TUBE TOP ×2 (09:19→21:17)
[2019-02-09] MEDS: CALAMINE 170 ML LOT TOP (09:21)
[2019-02-09] MEDS: RIFAXIMIN 550 MG TAB PO ×2 (09:59→21:16)
[2019-02-09] MEDS: ESCITALOPRAM 10 MG TAB PO (10:00)
[2019-02-09] MEDS: CALCIUM ACETATE 667 MG CAP PO ×3 (10:00→21:16)
[2019-02-09] MEDS: LINAGLIPTIN 5 MG TABLET PO (10:00)
[2019-02-09] MEDS: FOLIC ACID 1 MG TAB PO (10:00)
[2019-02-09] MEDS ORDERED: hydrALAzine 20 MG INJ IV (13:00)
[2019-02-09 13:12] LABS: CARCINOEMBRYONIC ANTIGEN 8.6 ng/ml (0.0-5.0)
[2019-02-09] MEDS: MEROPENEM 500MG/50 ML (PMX) 50 ML IVPB (14:17)
[2019-02-09] MEDS: AMLODIPINE 5 MG TAB PO (14:26)
[2019-02-09] MEDS: MELATONIN 5 MG TABLET PO (21:15)
[2019-02-09] MEDS: ATORVASTATIN 10 MG TAB PO (21:15)
[2019-02-10] MEDS: LACTULOSE 30ML CUP PO ×2 (06:00→14:00)
[2019-02-10] MEDS: PANTOPRAZOLE (EC) 40 MG TAB PO (06:19)
[2019-02-10 06:26] LABS: VANCOMYCIN,RANDOM 15.9 ug/ml
[2019-02-10] MEDS: INSULIN ASPART [NOVOLOG] 3 ML PEN SC ×3 (08:00→18:06)
[2019-02-10] MEDS: ESCITALOPRAM 10 MG TAB PO (08:34)
[2019-02-10] MEDS: MULTIVIT/CA CARB/B CMPLX/FA TAB PO (08:34)
[2019-02-10] MEDS: RIFAXIMIN 550 MG TAB PO (08:34)
[2019-02-10] MEDS: LINAGLIPTIN 5 MG TABLET PO (08:35)
[2019-02-10] MEDS: FOLIC ACID 1 MG TAB PO (08:35)
[2019-02-10] MEDS: CALCIUM ACETATE 667 MG CAP PO ×2 (08:35→12:01)
[2019-02-10] MEDS: BALSAM PERU/CASTOR OIL 60 GM TUBE TOP (08:37)
[2019-02-10] MEDS: CALAMINE 170 ML LOT TOP (08:37)
[2019-02-10] MEDS: ARTIFICIAL TEARS 15 ML OPH BOTH EYES ×3 (08:38→17:50)
[2019-02-10] MEDS: TRIAMCINOLONE ACET 0.1% 15 GM CR TOP (08:38)
[2019-02-10] MEDS: MUPIROCIN 2% 22 GM OINT TOP (08:39)
[2019-02-10] MEDS: ACETAMINOPHEN 325 MG TAB PO (11:57)
[2019-02-10] MEDS: VANCOMYCIN 1 GM 250 ML IVPB (11:57)
[2019-02-10] MEDS: MEROPENEM 500MG/50 ML (PMX) 50 ML IVPB ×2 (13:30→17:50)
== END 2019-02-10 20:33 | disposition home health service (06) | DRG 280 ==
LOC: PP2 01-21 20:01 → ICU 01-27 23:08 → 6WM 02-05 09:14 → E/R 08:53 → ICU 01-30 08:53 → 6WM 01-31 16:12 → TEL 10:48
PROC: 5A1D70Z Performance of Urinary Filtration, Intermittent, Less than 6 Hours Per Day (ICD-10-PCS; principal; 2019-02-02 10:45)
PROC: 0DJD8ZZ Inspection of Lower Intestinal Tract, Via Natural or Artificial Opening Endoscopic (ICD-10-PCS; 2019-02-02 10:45)
PROC: 0W9G30Z Drainage of Peritoneal Cavity with Drainage Device, Percutaneous Approach (ICD-10-PCS; 2019-02-02 10:45)
PROC: 02HV33Z Insertion of Infusion Device into Superior Vena Cava, Percutaneous Approach (ICD-10-PCS; 2019-02-02 10:45)
PROC: 0W9G3ZZ Drainage of Peritoneal Cavity, Percutaneous Approach (ICD-10-PCS; 2019-02-02 10:45)
PROC: 30233N1 Transfusion of Nonautologous Red Blood Cells into Peripheral Vein, Percutaneous Approach (ICD-10-PCS; 2019-02-02 10:45)
DX: I21.A1 Myocardial infarction type 2 (principal); N18.6 End stage renal disease; G92 Toxic encephalopathy; A41.9 Sepsis, unspecified organism; R65.21 Severe sepsis with septic shock; J69.0 Pneumonitis due to inhalation of food and vomit; K65.2 Spontaneous bacterial peritonitis; N17.9 Acute kidney failure, unspecified; E87.1 Hypo-osmolality and hyponatremia; I12.0 Hypertensive chronic kidney disease with stage 5 chronic kidney disease or end stage renal disease; I42.9 Cardiomyopathy, unspecified; M48.56XA Collapsed vertebra, not elsewhere classified, lumbar region, initial encounter for fracture; R18.8 Other ascites; D63.1 Anemia in chronic kidney disease; E87.5 Hyperkalemia; E11.22 Type 2 diabetes mellitus with diabetic chronic kidney disease; E87.70 Fluid overload, unspecified; F41.9 Anxiety disorder, unspecified; F32.9 Major depressive disorder, single episode, unspecified; G89.4 Chronic pain syndrome; I95.3 Hypotension of hemodialysis; K64.4 Residual hemorrhoidal skin tags; K57.90 Diverticulosis of intestine, part unspecified, without perforation or abscess without bleeding; K74.60 Unspecified cirrhosis of liver; K59.00 Constipation, unspecified; M85.88 Other specified disorders of bone density and structure, other site; M48.54XD Collapsed vertebra, not elsewhere classified, thoracic region, subsequent encounter for fracture with routine healing; M48.061 Spinal stenosis, lumbar region without neurogenic claudication; M48.07 Spinal stenosis, lumbosacral region; M51.9 Unspecified thoracic, thoracolumbar and lumbosacral intervertebral disc disorder; R19.5 Other fecal abnormalities; S62.101D Fracture of unspecified carpal bone, right wrist, subsequent encounter for fracture with routine healing; Z91.15 Patient's noncompliance with renal dialysis; Z99.2 Dependence on renal dialysis; Z22.322 Carrier or suspected carrier of Methicillin resistant Staphylococcus aureus; Z95.1 Presence of aortocoronary bypass graft; Z95.810 Presence of automatic (implantable) cardiac defibrillator; Z87.891 Personal history of nicotine dependence; Z79.82 Long term (current) use of aspirin; Z79.84 Long term (current) use of oral hypoglycemic drugs
CPT/HCPCS: 36415; 36430; 70450; 71045; 72072; 72100; 72131; 72170; 72192; 73100; 73510; 78452; 80048; 80053; 80061; 80202; 82105; 82140; 82270; 82378; 82533; 82550; 82553; 82607; 82728; 82746; 82962; 83036; 83540; 83605; 83615; 83690; 83735; 84100; 84132; 84145; 84443; 84484; 85014; 85018; 85025; 85045; 85610; 85730; 86301; 86704; 86709; 86803; 86850; 86900; 86901; 86920; 87040-91; 87081; 87340; 89051; 90935; 93005; 93017; 93306; 94644; 96374; 97110; 97161; 97164; 97530; 99291-25